=== PATIENT | female | born 1950 | race Asian ===

== ENCOUNTER 2024-06-14 19:21 | Inpatient (IN) | payer MEDICARE, OTHER ==
[~2024-06-14] VITALS: Ht 157.5 cm; Wt 58.5 kg
[~2024-06-14 19:21] MED LIST: ALEN70TA80 PO; ASPI-1444 PO; ATOR-2 PO; BRIM5DRO23 OU; BUME1TAB6 PO; CARB50DR OU; CITA-144 PO; DORZ10DR32 OU; EMPA10TA3 PO; FLUT12AE7 IH; LORA10TA7 PO; METO-416 PO; POTA-92 PO; SPIR-37 PO; WARF2.5T85 PO; XALA2.5OS OU
[2024-06-14] MEDS ORDERED: 0.9% SODIUM CHLORIDE 5 ML NEB SOLUTION NEB ONE (19:57)
[2024-06-14 20:19] VITALS: PULSE 99; RESP 38; O2SAT 96
[2024-06-14] MEDS ORDERED: AMIO200T68 PO (20:19)
[2024-06-14] MEDS ORDERED: ASCO500 PO (20:19)
[2024-06-14] MEDS ORDERED: METO25 PO (20:19)
[2024-06-14] MEDS ORDERED: ZINC50CA3 PO (20:19)
[2024-06-14] MEDS: BUMETANIDE 0.25 MG/ML 4 ML VIAL IVP ONE (20:19)
[2024-06-14] MEDS ORDERED: PANT-31 PO (20:19)
[2024-06-14] MEDS ORDERED: MULT-1203 PO (20:19)
[2024-06-14] MEDS ORDERED: WARF1TAB9 PO (20:19)
[2024-06-14] MEDS ORDERED: MELA5TAB40 PO (20:19)
[2024-06-14] MEDS ORDERED: MIDO5TAB29 PO (20:19)
[2024-06-14 20:45] VITALS: PULSE 92; RESP 42; O2SAT 91
[2024-06-14] MEDS: ALBUTEROL SULFATE 2.5 MG/0.5 ML 5 ML NEB SOLUTION NEB ONE (20:57)
[2024-06-14] MEDS: IPRATROPIUM BROMIDE 0.5 MG/2.5 ML NEB SOLUTION NEB ONE (20:57)
[2024-06-14 20:58] VITALS: PULSE 92; RESP 38; O2SAT 96
[2024-06-14 21:16] LABS: BILIRUBIN,DIRECT 0.2 mg/dL (0.00-0.20); BILIRUBIN,TOTAL 0.7 mg/dL (0.1-1.0); CALCIUM, TOTAL 9.1 mg/dL (8.8-10.5); CREATININE 1.15 mg/dL (0.60-1.30); POTASSIUM 4.5 mmol/L (3.5-5.1)
[2024-06-14 21:17] LABS: TROPONIN I-HIGH SENSITIVITY 30 ng/L (<51)
[2024-06-14 21:34] LABS: COVID AG,FIA SOURCE NASAL SWAB
[2024-06-14 21:36] LABS: BASOPHILS % (AUTO) 0.1 % (0.0-2.0); EOSINOPHILS % (AUTO) 0.3 % (1.0-6.0); HEMATOCRIT 28.3 % (36-46); HEMOGLOBIN 8.4 g/dL (12.0-16.0); LYMPHOCYTES # (AUTO) 0.3 K/uL (1.0-4.8); LYMPHOCYTES % (AUTO) 2.4 % (22.0-44.0); MEAN CORPUSCULAR HEMOGLOBIN 29.2 pg (26.0-34.0); MEAN CORPUSCULAR HGB CONC 29.8 G/dL (31.0-37.0); MEAN CORPUSCULAR VOLUME 98 fL (80-100); MONOCYTES # (AUTO) 1.3 K/uL (0.1-1.0); NEUTROPHILS # (AUTO) 12.6 K/uL (1.8-7.7); NEUTROPHILS % (AUTO) 88.2 % (40.0-70.0); PLATELET COUNT (AUTO) 263 K/uL (150-450); RED BLOOD CELL COUNT(AUTO) 2.89 MIL/uL (4.00-5.20); WHITE BLOOD COUNT (AUTO) 14.3 K/uL (4.5-11.0)
[2024-06-14 21:40] LABS: SOURCE, BLOOD GAS ARTERIAL
[2024-06-14 21:42] LABS: APPEARANCE,URINE CLEAR (CLEAR); BILIRUBIN,URINE NEGATIVE (NEGATIVE); COLOR,URINE LIGHT YELLOW (YELLOW); GLUCOSE, URINE (UA) NEGATIVE (NEGATIVE); KETONES,URINE NEGATIVE (NEGATIVE); LEUKOCYTE ESTERASE ,URINE NEGATIVE (NEGATIVE); NITRATE,URINE NEGATIVE (NEGATIVE); OCCULT BLOOD,URINE NEGATIVE (NEGATIVE); PH,URINE 5.5 (5.0-8.0); PROTEIN,URINE TRACE mg/dL (NEGATIVE); SPECIFIC GRAVITIY, URINE 1.009 (1.003-1.030); UROBILINOGEN,URINE <=1.0 mg/dL (<=1.0)
[2024-06-14 21:51] VITALS: PULSE 83; RESP 24; O2SAT 97
[2024-06-14 21:55] LABS: SARS-COV2 (COVID) ANTIGEN,FIA Negative (Negative)
[2024-06-14 21:59] LABS: TEMPERATURE, FAHRENHEIT, BG 98.6 FAHREN (96.0-98.6)
[2024-06-14 22:01] LABS: ABG BASE EXCESS 16.1 mmol/L (-2.0-3.0); ABG CARBOXYHEMOGLOBIN 1.1 % (0.5-1.5); ABG HCO3 37.6 mmol/L (21.0-28.0); ABG METHEMOGLOBIN 0.8 % (0.0-1.5); ABG OXYGEN CONTENT 11.7 mL/dL (15.0-23.0); ABG OXYGEN SATURATION 89.9 % (94.0-98.0); ABG OXYHEMOGLOBIN 88.2 % (94.0-98.0); ABG PCO2 65 mmHg (32.0-45.0); ABG PH 7.417 (7.350-7.450); ABG TOTAL HEMOGLOBIN 9.4 G/dL (12.0-16.0); PO2, ARTERIAL BG 58.7 mmHg (83.0-108.0)
[2024-06-14 22:02] LABS: ALLEN TEST, BLOOD GAS POS; O2 DEVICE,BLOOD GAS BIPAP (ROOM AIR); SITE, BLOOD GAS LFT RADIAL
[2024-06-14 22:03] LABS: SPONTANEOUS VT, BG 382 ml
[2024-06-14 22:09] VITALS: PULSE 88; RESP 29; O2SAT 96
[2024-06-14] MEDS: AZITHROMYCIN 500 MG/NS 250 ML IV ONE (22:54)
[2024-06-14] MEDS: CefTRIAXone 1 GM/DEXTROSE 50 ML IV ONE (22:54)
[2024-06-14 23:12] LABS: INR 1.8 (0.9-1.1); PROTHROMBIN TIME 18.5 SEC (9.4-11.6)
[2024-06-14 23:48] LABS: ABG BASE EXCESS 21.3 mmol/L (-2.0-3.0); ABG CARBOXYHEMOGLOBIN 0.4 % (0.5-1.5); ABG HCO3 42.6 mmol/L (21.0-28.0); ABG OXYGEN CONTENT 12.5 mL/dL (15.0-23.0); ABG OXYGEN SATURATION 98.3 % (94.0-98.0); ABG OXYHEMOGLOBIN 96.9 % (94.0-98.0); ABG PCO2 75 mmHg (32.0-45.0); ABG PH 7.407 (7.350-7.450); ALLEN TEST, BLOOD GAS Positive; PO2, ARTERIAL BG 107.4 mmHg (83.0-108.0); SITE, BLOOD GAS LFT RADIAL; SOURCE, BLOOD GAS ARTERIAL; TEMPERATURE, FAHRENHEIT, BG 97.3 FAHREN (96.0-98.6)
[2024-06-14 23:49] LABS: ABG A-A DIFF O2 239.6 mmHg (10-20.0); INSPIRATORY TIME, BG 0.9 SEC; O2 DEVICE,BLOOD GAS BIPAP (ROOM AIR)
[2024-06-15] VITALS (15 sets, daily range): BP systolic 90–150; BP diastolic 56–90; PULSE 64–100; RESP 14–39; TEMP 98.4–98.9; O2SAT 90–100
[2024-06-15] MEDS: SODIUM CHLORIDE 0.9% 250 ML IV ONE (00:10)
[2024-06-15] MEDS ORDERED: BISACODYL 10 MG RECTAL RECTAL SUPPOSITORY PR PRN (00:45)
[2024-06-15] MEDS ORDERED: ZOLPIDEM TARTRATE 5 MG TABLET PO PRN (00:45)
[2024-06-15] MEDS ORDERED: ONDANSETRON HCL 4 MG/2 ML VIAL IVP PRN (00:45)
[2024-06-15] MEDS ORDERED: MAGNESIUM HYDROXIDE SUSPENSION 30 ML UDCUP PO PRN (00:45)
[2024-06-15] MEDS: VANCOMYCIN 1GM/WATER(PEG/NADA) 200 ML IV ONE (01:00)
[2024-06-15] MEDS: *CLINICAL-WARFARIN SODIUM DOSING CLINICAL ONE (01:53)
[2024-06-15] MEDS: WARFARIN SODIUM 1 MG TABLET PO ONE (02:00)
[2024-06-15] MEDS ORDERED: WARFARIN SODIUM-INR 2.5-3.5-RX DOSING PER PROTOCOL PO PRN (02:00)
[2024-06-15] MEDS: VANCOMYCIN 1GM/WATER(PEG/NADA) 200 ML IV SCH (03:39)
[2024-06-15] MEDS: DOXYCYCLINE HYCLATE 100 MG in DEXTROSE 5%-WATER 100 ML IV SCH (05:20)
[2024-06-15 06:15] LABS: CREATININE 0.96 mg/dL (0.60-1.30); POTASSIUM 4.2 mmol/L (3.5-5.1)
[2024-06-15 06:17] LABS: INR 1.6 (0.9-1.1); PROTHROMBIN TIME 15.9 SEC (9.4-11.6)
[2024-06-15] MEDS: PIPERACILLIN/TAZO 3.375 GM/D5W 50 ML IV SCH (07:35)
[2024-06-15] MEDS: MULTIVITAMINS, THERAPEUTIC TABLET PO SCH (09:00)
[2024-06-15] MEDS: ASPIRIN 81 MG DR TABLET PO SCH (09:00)
[2024-06-15] MEDS: MIDODRINE HCL 5 MG TABLET PO SCH (09:00)
[2024-06-15] MEDS: ATORVASTATIN CALCIUM 40 MG TABLET PO SCH (09:00)
[2024-06-15] MEDS: DOCUSATE SODIUM 100 MG CAPSULE PO SCH (09:00)
[2024-06-15] MEDS: PANTOPRAZOLE SODIUM 40 MG/VIAL IVP SCH (09:42)
[2024-06-15] MEDS: ETHYL ALCOHOL 62% ANTISEPTIC NASAL SANITIZER 0.6 ML AMPUL NASAL SCH (09:43)
[2024-06-15] MEDS: BRIMONIDINE TARTRATE 0.15% 5 ML OPHTHALMIC SOLUTION OU SCH (09:44)
[2024-06-15] MEDS: DORZOLAMIDE/TIMOLOL 2-0.5% [22.3-6.8MG/ML] 10 ML OPHTHALMIC SOLUTION OU SCH (09:45)
[2024-06-15] MEDS ORDERED: SODIUM CHLORIDE 0.9% 250 ML IV ONE (16:34)
[2024-06-15] MEDS: ALBUTEROL SULFATE 2.5 MG/0.5 ML NEB SOLUTION NEB PRN (20:38)
[2024-06-15] MEDS: IPRATROPIUM BROMIDE 0.5 MG/2.5 ML NEB SOLUTION NEB PRN (20:38)
[2024-06-15] MEDS: VANCOMYCIN 500 MG/WATER(PEG) 100 ML IV SCH (21:43)
[2024-06-15] MEDS: LATANOPROST 0.005% 2.5 ML OPHTHALMIC SOLUTION OU SCH (21:44)
[2024-06-16] VITALS (8 sets, daily range): BP systolic 105–127; BP diastolic 59–85; PULSE 71–87; RESP 13–33; TEMP 97.4–98.9; O2SAT 90–99
[2024-06-16 06:19] LABS: HEMATOCRIT 27.1 % (36-46); HEMOGLOBIN 8.5 g/dL (12.0-16.0); MEAN CORPUSCULAR HEMOGLOBIN 30.6 pg (26.0-34.0); MEAN CORPUSCULAR HGB CONC 31.4 G/dL (31.0-37.0); MEAN CORPUSCULAR VOLUME 98 fL (80-100); PLATELET COUNT (AUTO) 231 K/uL (150-450); RED BLOOD CELL COUNT(AUTO) 2.77 MIL/uL (4.00-5.20); RED CELL DISTRIBUTION WIDTH 21.3 % (11.5-14.5); WHITE BLOOD COUNT (AUTO) 8.2 K/uL (4.5-11.0)
[2024-06-16 06:29] LABS: INR 1.6 (0.9-1.1); PROTHROMBIN TIME 16.8 SEC (9.4-11.6)
[2024-06-16 06:30] LABS: CALCIUM, TOTAL 9.8 mg/dL (8.8-10.5); CREATININE 0.93 mg/dL (0.60-1.30); POTASSIUM 3.4 mmol/L (3.5-5.1)
[2024-06-16 07:04] LABS: BAND NEUTROPHILS % (MANUAL) 3 % (0-5); LYMPHOCYTES % (MANUAL) 7 % (22-44); MONOCYTES % (MANUAL) 8 % (2-9); SEGMENTED NEUTROPHILS % 82 % (40-70); TOTAL CELLS COUNTED 100
[2024-06-16 07:05] LABS: RBC MORPHOLOGY COMMENT NORMAL RBC MORPH
[2024-06-16] MEDS: BUMETANIDE 0.25 MG/ML 4 ML VIAL IVP SCH (08:38)
[2024-06-16] MEDS: WARFARIN SODIUM 2 MG TABLET PO ONE (17:09)
[2024-06-17] VITALS (8 sets, daily range): BP systolic 103–143; BP diastolic 48–80; PULSE 62–100; RESP 21–30; TEMP 97.5–98.7; O2SAT 91–100
[2024-06-17 06:35] LABS: BASOPHILS % (AUTO) 0.4 % (0.0-2.0); EOSINOPHILS % (AUTO) 2.1 % (1.0-6.0); HEMOGLOBIN 8.6 g/dL (12.0-16.0); LYMPHOCYTES # (AUTO) 0.4 K/uL (1.0-4.8); LYMPHOCYTES % (AUTO) 4.7 % (22.0-44.0); MEAN CORPUSCULAR HEMOGLOBIN 29.9 pg (26.0-34.0); MEAN CORPUSCULAR HGB CONC 30.8 G/dL (31.0-37.0); MEAN CORPUSCULAR VOLUME 97 fL (80-100); MONOCYTES # (AUTO) 0.7 K/uL (0.1-1.0); MONOCYTES % (AUTO) 9.6 % (2.0-9.0); NEUTROPHILS # (AUTO) 6.5 K/uL (1.8-7.7); NEUTROPHILS % (AUTO) 83.2 % (40.0-70.0); PLATELET COUNT (AUTO) 241 K/uL (150-450); RED BLOOD CELL COUNT(AUTO) 2.88 MIL/uL (4.00-5.20); RED CELL DISTRIBUTION WIDTH 21.7 % (11.5-14.5); WHITE BLOOD COUNT (AUTO) 7.8 K/uL (4.5-11.0)
[2024-06-17 06:43] LABS: INR 2.7 (0.9-1.1); PROTHROMBIN TIME 26.1 SEC (9.4-11.6)
[2024-06-17 07:16] LABS: CALCIUM, TOTAL 9.2 mg/dL (8.8-10.5); POTASSIUM 3.1 mmol/L (3.5-5.1)
[2024-06-17 07:17] LABS: VANCOMYCIN,RANDOM 24.8 mcg/mL (25.0-50.0)
[2024-06-17] MEDS: HYDROCODONE/ACETAMINOPHEN 5-325 MG TABLET PO PRN (08:05)
[2024-06-17] MEDS: MORPHINE SULFATE 2 MG/ML SYRINGE IVP PRN (09:09)
[2024-06-17] MEDS ORDERED: SODIUM CHLORIDE 0.9% 500 ML IV ONE (11:37)
[2024-06-17] MEDS ORDERED: ATOR40TA28 PO (15:57)
[2024-06-17] MEDS: POTASSIUM CHLORIDE 20 MEQ ER TABLET PO PRN (15:59)
[2024-06-17] MEDS: WARFARIN SODIUM 1 MG TABLET PO ONE (16:00)
[2024-06-18] VITALS (8 sets, daily range): BP systolic 107–164; BP diastolic 48–82; PULSE 54–76; RESP 12–32; TEMP 95.2–97.6; O2SAT 92–95
[2024-06-18 07:14] LABS: BASOPHILS % (AUTO) 0.7 % (0.0-2.0); EOSINOPHILS % (AUTO) 3.4 % (1.0-6.0); HEMOGLOBIN 8.5 g/dL (12.0-16.0); LYMPHOCYTES # (AUTO) 0.4 K/uL (1.0-4.8); MEAN CORPUSCULAR HEMOGLOBIN 30.6 pg (26.0-34.0); MEAN CORPUSCULAR HGB CONC 31.5 G/dL (31.0-37.0); MEAN CORPUSCULAR VOLUME 97 fL (80-100); MONOCYTES # (AUTO) 0.6 K/uL (0.1-1.0); MONOCYTES % (AUTO) 9.3 % (2.0-9.0); NEUTROPHILS # (AUTO) 5.3 K/uL (1.8-7.7); NEUTROPHILS % (AUTO) 80.6 % (40.0-70.0); PLATELET COUNT (AUTO) 253 K/uL (150-450); RED BLOOD CELL COUNT(AUTO) 2.79 MIL/uL (4.00-5.20); RED CELL DISTRIBUTION WIDTH 21.6 % (11.5-14.5); WHITE BLOOD COUNT (AUTO) 6.5 K/uL (4.5-11.0)
[2024-06-18 07:46] LABS: INR 3.9 (0.9-1.1); PROTHROMBIN TIME 37.6 SEC (9.4-11.6)
[2024-06-18 07:47] LABS: ALANINE AMINOTRANSFERASE 33 U/L (12-78); ALBUMIN 2.5 g/dL (3.4-5.0); ALKALINE PHOSPHATASE 170 U/L (46-116); ANION GAP 5 mmol/L (8-16); ASPARTATE AMINOTRANSFERASE 42 U/L (15-37); BILIRUBIN,TOTAL 0.7 mg/dL (0.1-1.0); CALCIUM, TOTAL 9.2 mg/dL (8.8-10.5); CARBON DIOXIDE 37 mmol/L (22-29); CHLORIDE 96 mmol/L (98-107); CREATININE 0.91 mg/dL (0.60-1.30); GLOMERULAR FILTR. RATE CALC > 60 mL/min (>60); GLUCOSE,RANDOM 129 mg/dL (70-110); POTASSIUM 3.2 mmol/L (3.5-5.1); SODIUM SERUM 138 mmol/L (136-145); TOTAL PROTEIN, SERUM 6.7 g/dL (6.4-8.2); UREA NITROGEN, BLOOD 25 mg/dL (7-18)
[2024-06-18] MEDS: VANCOMYCIN 750 MG/WATER(PEG) 150 ML IV SCH (08:50)
[2024-06-18] MEDS: ACETAMINOPHEN 325 MG TABLET PO PRN (09:56)
[2024-06-19] VITALS (10 sets, daily range): BP systolic 124–162; BP diastolic 57–88; PULSE 73–82; RESP 16–36; TEMP 96.2–97.6; O2SAT 88–99
[2024-06-19 06:25] LABS: CALCIUM, TOTAL 8.9 mg/dL (8.8-10.5); CREATININE 1.09 mg/dL (0.60-1.30); POTASSIUM 3.7 mmol/L (3.5-5.1)
[2024-06-19 06:28] LABS: PROTHROMBIN TIME 39.2 SEC (9.4-11.6)
[2024-06-19 06:38] LABS: INR 4.1 (0.9-1.1)
[2024-06-19 19:48] LABS: ABG CARBOXYHEMOGLOBIN 1.2 % (0.5-1.5); ABG HCO3 34.9 mmol/L (21.0-28.0); ABG METHEMOGLOBIN 0.1 % (0.0-1.5); ABG OXYGEN CONTENT 11.9 mL/dL (15.0-23.0); ABG OXYGEN SATURATION 96.9 % (94.0-98.0); ABG OXYHEMOGLOBIN 95.6 % (94.0-98.0); ABG PCO2 69 mmHg (32.0-45.0); ABG PH 7.362 (7.350-7.450); ABG TOTAL HEMOGLOBIN 8.7 G/dL (12.0-16.0); PO2, ARTERIAL BG 98.2 mmHg (83.0-108.0); SOURCE, BLOOD GAS ARTERIAL; TEMPERATURE, FAHRENHEIT, BG 97.6 FAHREN (96.0-98.6)
[2024-06-19 19:52] LABS: ALLEN TEST, BLOOD GAS Positive; SITE, BLOOD GAS RT RADIAL
[2024-06-19 19:53] LABS: O2 DEVICE,BLOOD GAS BIPAP (ROOM AIR)
[2024-06-19 19:54] LABS: SPONTANEOUS VT, BG 306 ml
[2024-06-19 19:55] LABS: INSPIRATORY TIME, BG 0.8 SEC
[2024-06-19] MEDS: BUMETANIDE 0.25 MG/ML 4 ML VIAL IVP SCH (20:21)
[2024-06-19] MEDS: PHYTONADIONE 5 MG in SODIUM CHLORIDE 0.9% 50 ML IV ONE (20:28)
[2024-06-20] VITALS (29 sets, daily range): BP systolic 92–152; BP diastolic 50–79; PULSE 64–88; RESP 12–42; TEMP 96.8–97.8; O2SAT 91–99
[2024-06-20 06:12] LABS: INR 1.3 (0.9-1.1)
[2024-06-20 06:19] LABS: CALCIUM, TOTAL 9.1 mg/dL (8.8-10.5); CREATININE 1.03 mg/dL (0.60-1.30); POTASSIUM 3.5 mmol/L (3.5-5.1); VANCOMYCIN,RANDOM 19.3 mcg/mL (25.0-50.0)
[2024-06-20] MEDS ORDERED: HEPARIN SODIUM,PORCINE 5,000 UNITS/ML VIAL IVP PRN (11:15)
[2024-06-20 11:53] LABS: BASOPHILS % (AUTO) 0.3 % (0.0-2.0); EOSINOPHILS % (AUTO) 2.5 % (1.0-6.0); HEMATOCRIT 22.9 % (36-46); LYMPHOCYTES # (AUTO) 0.3 K/uL (1.0-4.8); LYMPHOCYTES % (AUTO) 5.3 % (22.0-44.0); MEAN CORPUSCULAR HEMOGLOBIN 29.8 pg (26.0-34.0); MEAN CORPUSCULAR HGB CONC 30.5 G/dL (31.0-37.0); MEAN CORPUSCULAR VOLUME 98 fL (80-100); MONOCYTES # (AUTO) 0.6 K/uL (0.1-1.0); NEUTROPHILS # (AUTO) 5.3 K/uL (1.8-7.7); NEUTROPHILS % (AUTO) 81.9 % (40.0-70.0); PLATELET COUNT (AUTO) 265 K/uL (150-450); RED BLOOD CELL COUNT(AUTO) 2.34 MIL/uL (4.00-5.20); RED CELL DISTRIBUTION WIDTH 21.2 % (11.5-14.5); WHITE BLOOD COUNT (AUTO) 6.5 K/uL (4.5-11.0)
[2024-06-20 11:56] LABS: SOURCE, BLOOD GAS ARTERIAL; TEMPERATURE, FAHRENHEIT, BG 97.2 FAHREN (96.0-98.6)
[2024-06-20] MEDS: DEXMEDETOMIDINE HCL 400 MCG in SODIUM CHLORIDE 0.9% 96 ML IV PRN (12:07)
[2024-06-20 12:17] LABS: INR 1.2 (0.9-1.1); PROTHROMBIN TIME 12.3 SEC (9.4-11.6)
[2024-06-20] MEDS ORDERED: LIDOCAINE/PF 1% 30 ML VIAL ONE (12:28)
[2024-06-20] MEDS ORDERED: SODIUM CHLORIDE 0.9% 500 ML IV ONE (13:51)
[2024-06-20 14:35] LABS: ABG CARBOXYHEMOGLOBIN 0.9 % (0.5-1.5); ABG HCO3 38.2 mmol/L (21.0-28.0); ABG METHEMOGLOBIN 1.2 % (0.0-1.5); ABG OXYGEN CONTENT 9.5 mL/dL (15.0-23.0); ABG OXYGEN SATURATION 98.4 % (94.0-98.0); ABG OXYHEMOGLOBIN 96.3 % (94.0-98.0); ABG PCO2 66 mmHg (32.0-45.0); PO2, ARTERIAL BG 109.6 mmHg (83.0-108.0)
[2024-06-20 14:36] LABS: ABG A-A DIFF O2 393.7 mmHg (10-20.0); ABG TOTAL HEMOGLOBIN 6.8 G/dL (12.0-16.0); ALLEN TEST, BLOOD GAS Positive; SITE, BLOOD GAS LFT RADIAL
[2024-06-20 14:37] LABS: O2 DEVICE,BLOOD GAS HI FL CANNULA (ROOM AIR)
[2024-06-20 14:41] LABS: SPECIMENTYPE,BODY FLUID THORACENTESIS
[2024-06-20 15:33] LABS: APPEARANCE,SPUN,BODY FLUID CLEAR (CLEAR); APPEARANCE,UNSPUN,BODY FLUID BLOODY (CLEAR); COLOR,BODY FLUID RED (LT YELLOW); TOTAL VOLUME,BODY FLUID 800 mL
[2024-06-20 15:34] LABS: BASOPHILS,BODY FLUID 0 %; EOSINOPHILS,BF (ANAL) 0 %; LYMPHOCYTES,BODY FLUID 83 %; MONOCYTES,BODY FLUID 9 %; NEUTROPHILS,BODY FLUID 8 %; PH, BODY FLUID 7; WBC, BODY FLUID 80 /cu. mm.
[2024-06-20 20:31] LABS: HEMATOCRIT 26.6 % (36-46); HEMOGLOBIN 8.1 g/dL (12.0-16.0)
[2024-06-20] MEDS: NOREPINEPHRINE 8 MG/0.9 % NACL 250 ML IV PRN (23:41)
[2024-06-20 23:42] LABS: ABG BASE EXCESS 13.9 mmol/L (-2.0-3.0); ABG CARBOXYHEMOGLOBIN 1.2 % (0.5-1.5); ABG METHEMOGLOBIN 0.3 % (0.0-1.5); ABG OXYGEN CONTENT 11.4 mL/dL (15.0-23.0); ABG OXYGEN SATURATION 96.4 % (94.0-98.0); ABG PCO2 62 mmHg (32.0-45.0); ABG PH 7.414 (7.350-7.450); ABG TOTAL HEMOGLOBIN 8.4 G/dL (12.0-16.0); SOURCE, BLOOD GAS ARTERIAL; TEMPERATURE, FAHRENHEIT, BG 98.6 FAHREN (96.0-98.6)
[2024-06-20 23:43] LABS: ALLEN TEST, BLOOD GAS Positive; O2 DEVICE,BLOOD GAS BIPAP (ROOM AIR); SITE, BLOOD GAS LFT RADIAL
[2024-06-21] VITALS (10 sets, daily range): BP systolic 73–123; BP diastolic 41–70; PULSE 48–80; RESP 16–34; TEMP 96.5–97.7; O2SAT 96–100
[2024-06-21 06:22] LABS: HEMATOCRIT 25.8 % (36-46); MEAN CORPUSCULAR HEMOGLOBIN 28.2 pg (26.0-34.0); MEAN CORPUSCULAR HGB CONC 30.9 G/dL (31.0-37.0); MEAN CORPUSCULAR VOLUME 91 fL (80-100); PLATELET COUNT (AUTO) 179 K/uL (150-450); RED BLOOD CELL COUNT(AUTO) 2.82 MIL/uL (4.00-5.20); RED CELL DISTRIBUTION WIDTH 23.8 % (11.5-14.5); WHITE BLOOD COUNT (AUTO) 17.5 K/uL (4.5-11.0)
[2024-06-21 06:33] LABS: INR 1.1 (0.9-1.1); PROTHROMBIN TIME 11.6 SEC (9.4-11.6)
[2024-06-21 08:08] LABS: RBC MORPHOLOGY COMMENT ABNORMAL RBC MORPH
[2024-06-21 08:19] LABS: BAND NEUTROPHILS % (MANUAL) 3 % (0-5); BASOPHILS % (MANUAL) 1 % (0-2); LYMPHOCYTES % (MANUAL) 7 % (22-44); MONOCYTES % (MANUAL) 7 % (2-9); SEGMENTED NEUTROPHILS % 82 % (40-70); TOTAL CELLS COUNTED 100
[2024-06-21 08:20] LABS: CALCIUM, TOTAL 8.4 mg/dL (8.8-10.5); CREATININE 1.04 mg/dL (0.60-1.30); POTASSIUM 3.7 mmol/L (3.5-5.1)
[2024-06-21] MEDS ORDERED: SODIUM CHLORIDE 0.9% 250 ML IV ONE (09:01)
[2024-06-21] MEDS: HEPARIN SODIUM 25000 UNITS/D5W 250 ML IV PRN (11:00)
[2024-06-21 14:07] LABS: TOTAL PROTEIN,BODY FLUID,REF 1.8 g/dL
[2024-06-21 15:16] LABS: HEMOGLOBIN 8.4 g/dL (12.0-16.0)
[2024-06-21 20:54] LABS: HEMOGLOBIN 8.4 g/dL (12.0-16.0)
[2024-06-22] VITALS (13 sets, daily range): BP systolic 95–142; BP diastolic 40–67; PULSE 49–74; RESP 16–27; TEMP 96.4–97.8; O2SAT 89–100
[2024-06-22 06:45] LABS: HEMATOCRIT 27.2 % (36-46); HEMOGLOBIN 8.6 g/dL (12.0-16.0); MEAN CORPUSCULAR HEMOGLOBIN 28.9 pg (26.0-34.0); MEAN CORPUSCULAR HGB CONC 31.8 G/dL (31.0-37.0); MEAN CORPUSCULAR VOLUME 91 fL (80-100); PLATELET COUNT (AUTO) 199 K/uL (150-450); RED BLOOD CELL COUNT(AUTO) 2.98 MIL/uL (4.00-5.20); RED CELL DISTRIBUTION WIDTH 22.2 % (11.5-14.5); WHITE BLOOD COUNT (AUTO) 13.9 K/uL (4.5-11.0)
[2024-06-22 07:41] LABS: BAND NEUTROPHILS % (MANUAL) 2 % (0-5); EOSINOPHILS % (MANUAL) 2 % (1-6); LYMPHOCYTES % (MANUAL) 6 % (22-44); MONOCYTES % (MANUAL) 10 % (2-9); SEGMENTED NEUTROPHILS % 80 % (40-70); TOTAL CELLS COUNTED 100
[2024-06-22 07:42] LABS: RBC MORPHOLOGY COMMENT ABNORMAL RBC MORPH
[2024-06-22 09:26] LABS: CALCIUM, TOTAL 8.6 mg/dL (8.8-10.5); CREATININE 1.06 mg/dL (0.60-1.30); POTASSIUM 3.3 mmol/L (3.5-5.1)
[2024-06-23] VITALS (14 sets, daily range): BP systolic 135–171; BP diastolic 67–99; PULSE 67–102; RESP 16–40; TEMP 96.6–98; O2SAT 78–100
[2024-06-23 07:15] LABS: ANION GAP 6 mmol/L (8-16); CALCIUM, TOTAL 8.8 mg/dL (8.8-10.5); CARBON DIOXIDE 40 mmol/L (22-29); CHLORIDE 93 mmol/L (98-107); CREATININE 0.85 mg/dL (0.60-1.30); GLOMERULAR FILTR. RATE CALC > 60 mL/min (>60); GLUCOSE,RANDOM 148 mg/dL (70-110); POTASSIUM 3.4 mmol/L (3.5-5.1); SODIUM SERUM 139 mmol/L (136-145); UREA NITROGEN, BLOOD 18 mg/dL (7-18); VANCOMYCIN,RANDOM 18.8 mcg/mL (25.0-50.0)
[2024-06-23 07:20] LABS: BASOPHILS % (AUTO) 0.2 % (0.0-2.0); EOSINOPHILS % (AUTO) 0.8 % (1.0-6.0); HEMATOCRIT 25.8 % (36-46); HEMOGLOBIN 8.2 g/dL (12.0-16.0); LYMPHOCYTES # (AUTO) 0.6 K/uL (1.0-4.8); LYMPHOCYTES % (AUTO) 4.5 % (22.0-44.0); MEAN CORPUSCULAR HEMOGLOBIN 29.2 pg (26.0-34.0); MEAN CORPUSCULAR VOLUME 92 fL (80-100); MONOCYTES % (AUTO) 7.3 % (2.0-9.0); NEUTROPHILS # (AUTO) 12.4 K/uL (1.8-7.7); PLATELET COUNT (AUTO) 229 K/uL (150-450); RED BLOOD CELL COUNT(AUTO) 2.82 MIL/uL (4.00-5.20); RED CELL DISTRIBUTION WIDTH 22.4 % (11.5-14.5); WHITE BLOOD COUNT (AUTO) 14.2 K/uL (4.5-11.0)
[2024-06-23 07:22] LABS: NEUTROPHILS % (AUTO) 87.2 % (40.0-70.0)
[2024-06-23 07:24] LABS: RBC MORPHOLOGY COMMENT ABNORMAL RBC MORPH
[2024-06-23 08:52] LABS: ABG CARBOXYHEMOGLOBIN 0.6 % (0.5-1.5); ABG HCO3 33.9 mmol/L (21.0-28.0); ABG OXYGEN CONTENT 9.2 mL/dL (15.0-23.0); ABG OXYHEMOGLOBIN 69.2 % (94.0-98.0); ABG PCO2 91 mmHg (32.0-45.0); ABG PH 7.261 (7.350-7.450); ABG TOTAL HEMOGLOBIN 9.4 G/dL (12.0-16.0); SOURCE, BLOOD GAS ARTERIAL
[2024-06-23 08:53] LABS: PO2, ARTERIAL BG 42.4 mmHg (83.0-108.0)
[2024-06-23 08:54] LABS: ABG OXYGEN SATURATION 70.3 % (94.0-98.0); O2 DEVICE,BLOOD GAS CANNULA (ROOM AIR); SITE, BLOOD GAS RT BRACHIAL
[2024-06-23] MEDS: ALTEPLASE 2 MG VIAL/STERILE WATER IVCATH ONE (14:48)
[2024-06-24] VITALS (14 sets, daily range): BP systolic 91–155; BP diastolic 53–68; PULSE 55–92; RESP 16–40; TEMP 96–98.1; O2SAT 50–100
[2024-06-24 06:09] LABS: BASOPHILS % (AUTO) 0.1 % (0.0-2.0); EOSINOPHILS % (AUTO) 0.5 % (1.0-6.0); HEMATOCRIT 23.4 % (36-46); HEMOGLOBIN 7.3 g/dL (12.0-16.0); LYMPHOCYTES # (AUTO) 0.6 K/uL (1.0-4.8); LYMPHOCYTES % (AUTO) 5.8 % (22.0-44.0); MEAN CORPUSCULAR HEMOGLOBIN 29.2 pg (26.0-34.0); MEAN CORPUSCULAR HGB CONC 31.1 G/dL (31.0-37.0); MEAN CORPUSCULAR VOLUME 94 fL (80-100); MONOCYTES # (AUTO) 1.2 K/uL (0.1-1.0); MONOCYTES % (AUTO) 10.4 % (2.0-9.0); NEUTROPHILS # (AUTO) 9.2 K/uL (1.8-7.7); NEUTROPHILS % (AUTO) 83.2 % (40.0-70.0); PLATELET COUNT (AUTO) 207 K/uL (150-450); RED BLOOD CELL COUNT(AUTO) 2.49 MIL/uL (4.00-5.20); RED CELL DISTRIBUTION WIDTH 22.2 % (11.5-14.5); WHITE BLOOD COUNT (AUTO) 11.1 K/uL (4.5-11.0)
[2024-06-24 06:22] LABS: CALCIUM, TOTAL 8.9 mg/dL (8.8-10.5); CREATININE 1.05 mg/dL (0.60-1.30); POTASSIUM 4.1 mmol/L (3.5-5.1)
[2024-06-24 11:09] LABS: ABG BASE EXCESS 13.6 mmol/L (-2.0-3.0); ABG CARBOXYHEMOGLOBIN 0.8 % (0.5-1.5); ABG HCO3 35.2 mmol/L (21.0-28.0); ABG OXYGEN CONTENT 10.3 mL/dL (15.0-23.0); ABG OXYGEN SATURATION 87.6 % (94.0-98.0); ABG OXYHEMOGLOBIN 86.9 % (94.0-98.0); ABG PCO2 78 mmHg (32.0-45.0); ABG PH 7.323 (7.350-7.450); ABG TOTAL HEMOGLOBIN 8.4 G/dL (12.0-16.0); PO2, ARTERIAL BG 55.9 mmHg (83.0-108.0); SOURCE, BLOOD GAS ARTERIAL; TEMPERATURE, FAHRENHEIT, BG 97.7 FAHREN (96.0-98.6)
[2024-06-24 11:13] LABS: ABG A-A DIFF O2 110.9 mmHg (10-20.0); ALLEN TEST, BLOOD GAS Positive; O2 DEVICE,BLOOD GAS CANNULA (ROOM AIR); SITE, BLOOD GAS LFT RADIAL
[2024-06-24] MEDS: ALTEPLASE 2 MG VIAL/STERILE WATER IVCATH ONE (13:56)
[2024-06-25] VITALS (14 sets, daily range): BP systolic 89–120; BP diastolic 53–74; PULSE 66–84; RESP 14–30; TEMP 96.9–98.4; O2SAT 93–100
[2024-06-25 06:09] LABS: BASOPHILS % (AUTO) 0.5 % (0.0-2.0); EOSINOPHILS % (AUTO) 0.6 % (1.0-6.0); HEMOGLOBIN 7.5 g/dL (12.0-16.0); LYMPHOCYTES # (AUTO) 0.6 K/uL (1.0-4.8); LYMPHOCYTES % (AUTO) 4.8 % (22.0-44.0); MEAN CORPUSCULAR HEMOGLOBIN 29.2 pg (26.0-34.0); MEAN CORPUSCULAR HGB CONC 31.3 G/dL (31.0-37.0); MEAN CORPUSCULAR VOLUME 94 fL (80-100); MONOCYTES # (AUTO) 2.3 K/uL (0.1-1.0); MONOCYTES % (AUTO) 16.9 % (2.0-9.0); NEUTROPHILS # (AUTO) 10.3 K/uL (1.8-7.7); NEUTROPHILS % (AUTO) 77.2 % (40.0-70.0); PLATELET COUNT (AUTO) 177 K/uL (150-450); RED BLOOD CELL COUNT(AUTO) 2.56 MIL/uL (4.00-5.20); RED CELL DISTRIBUTION WIDTH 23.8 % (11.5-14.5); WHITE BLOOD COUNT (AUTO) 13.4 K/uL (4.5-11.0)
[2024-06-25 06:25] LABS: ALBUMIN 2.2 g/dL (3.4-5.0); BILIRUBIN,TOTAL 0.8 mg/dL (0.1-1.0); CALCIUM, TOTAL 9.1 mg/dL (8.8-10.5); CREATININE 1.05 mg/dL (0.60-1.30); POTASSIUM 3.8 mmol/L (3.5-5.1); TOTAL PROTEIN, SERUM 6.3 g/dL (6.4-8.2)
[2024-06-25] MEDS: HEPARIN SODIUM,PORCINE 5,000 UNITS/ML VIAL IVP PRN (07:36)
[2024-06-25] MEDS ORDERED: SODIUM CHLORIDE 0.9% 250 ML IV ONE (17:23)
[2024-06-26] VITALS (14 sets, daily range): BP systolic 95–144; BP diastolic 45–82; PULSE 62–91; RESP 16–36; TEMP 97.6–98.3; O2SAT 90–97
[2024-06-26 07:04] LABS: CALCIUM, TOTAL 8.8 mg/dL (8.8-10.5); CREATININE 1.03 mg/dL (0.60-1.30); POTASSIUM 3.6 mmol/L (3.5-5.1); VANCOMYCIN,RANDOM 23.5 mcg/mL (25.0-50.0)
[2024-06-26 08:54] LABS: BASOPHILS % (AUTO) 0.4 % (0.0-2.0); EOSINOPHILS % (AUTO) 0.6 % (1.0-6.0); HEMATOCRIT 24.6 % (36-46); HEMOGLOBIN 7.4 g/dL (12.0-16.0); LYMPHOCYTES # (AUTO) 0.5 K/uL (1.0-4.8); LYMPHOCYTES % (AUTO) 3.6 % (22.0-44.0); MEAN CORPUSCULAR HEMOGLOBIN 28.7 pg (26.0-34.0); MEAN CORPUSCULAR HGB CONC 30.3 G/dL (31.0-37.0); MEAN CORPUSCULAR VOLUME 95 fL (80-100); MONOCYTES % (AUTO) 6.5 % (2.0-9.0); NEUTROPHILS # (AUTO) 13.3 K/uL (1.8-7.7); PLATELET COUNT (AUTO) 193 K/uL (150-450); RED BLOOD CELL COUNT(AUTO) 2.59 MIL/uL (4.00-5.20); RED CELL DISTRIBUTION WIDTH 23.1 % (11.5-14.5)
[2024-06-26 09:04] LABS: NEUTROPHILS % (AUTO) 88.9 % (40.0-70.0)
[2024-06-26 09:05] LABS: RBC MORPHOLOGY COMMENT ABNORMAL RBC MORPH
[2024-06-26] MEDS: BUMETANIDE 0.25 MG/ML 4 ML VIAL IVP SCH (20:41)
[2024-06-27] VITALS (13 sets, daily range): BP systolic 104–145; BP diastolic 56–83; PULSE 66–115; RESP 19–40; TEMP 96–97.7; O2SAT 90–95
[2024-06-27 06:23] LABS: ANION GAP 5 mmol/L (8-16); CALCIUM, TOTAL 8.5 mg/dL (8.8-10.5); CHLORIDE 95 mmol/L (98-107); CREATININE 0.91 mg/dL (0.60-1.30); GLOMERULAR FILTR. RATE CALC > 60 mL/min (>60); GLUCOSE,RANDOM 189 mg/dL (70-110); SODIUM SERUM 143 mmol/L (136-145); UREA NITROGEN, BLOOD 19 mg/dL (7-18)
[2024-06-27 06:26] LABS: BASOPHILS % (AUTO) 0.1 % (0.0-2.0); EOSINOPHILS % (AUTO) 0.3 % (1.0-6.0); HEMATOCRIT 24.4 % (36-46); HEMOGLOBIN 7.6 g/dL (12.0-16.0); LYMPHOCYTES # (AUTO) 0.6 K/uL (1.0-4.8); LYMPHOCYTES % (AUTO) 4.4 % (22.0-44.0); MEAN CORPUSCULAR HGB CONC 31.2 G/dL (31.0-37.0); MEAN CORPUSCULAR VOLUME 93 fL (80-100); MONOCYTES # (AUTO) 0.8 K/uL (0.1-1.0); PLATELET COUNT (AUTO) 225 K/uL (150-450); RED BLOOD CELL COUNT(AUTO) 2.63 MIL/uL (4.00-5.20); RED CELL DISTRIBUTION WIDTH 23.8 % (11.5-14.5); WHITE BLOOD COUNT (AUTO) 13.5 K/uL (4.5-11.0)
[2024-06-27 06:27] LABS: NEUTROPHILS % (AUTO) 89.2 % (40.0-70.0)
[2024-06-27 06:38] LABS: CARBON DIOXIDE 43 mmol/L (22-29)
[2024-06-27] MEDS: VANCOMYCIN 500 MG/WATER(PEG) 100 ML IV SCH (08:02)
[2024-06-27] MEDS: AcetaZOLAMIDE SODIUM 500 MG VIAL IVP ONE (09:29)
[2024-06-27] MEDS: POTASSIUM CHL 10 MEQ/WATER 50 ML IV PRN (13:50)
[2024-06-28] VITALS (13 sets, daily range): BP systolic 109–142; BP diastolic 45–71; PULSE 71–97; RESP 17–35; TEMP 96.9–98.6; O2SAT 82–100
[2024-06-28 06:11] LABS: CALCIUM, TOTAL 8.9 mg/dL (8.8-10.5); CREATININE 1.16 mg/dL (0.60-1.30); POTASSIUM 4.5 mmol/L (3.5-5.1)
[2024-06-28] MEDS ORDERED: SODIUM CHLORIDE 0.9% 250 ML IV ONE ×2 (08:06→20:10)
[2024-06-28 08:38] LABS: BASOPHILS % (AUTO) 0.3 % (0.0-2.0); EOSINOPHILS % (AUTO) 0.4 % (1.0-6.0); HEMATOCRIT 24.1 % (36-46); HEMOGLOBIN 7.2 g/dL (12.0-16.0); LYMPHOCYTES # (AUTO) 0.6 K/uL (1.0-4.8); LYMPHOCYTES % (AUTO) 4.1 % (22.0-44.0); MEAN CORPUSCULAR HEMOGLOBIN 28.3 pg (26.0-34.0); MEAN CORPUSCULAR HGB CONC 29.7 G/dL (31.0-37.0); MEAN CORPUSCULAR VOLUME 96 fL (80-100); MONOCYTES # (AUTO) 1.1 K/uL (0.1-1.0); MONOCYTES % (AUTO) 7.1 % (2.0-9.0); NEUTROPHILS # (AUTO) 13.3 K/uL (1.8-7.7); PLATELET COUNT (AUTO) 239 K/uL (150-450); RED BLOOD CELL COUNT(AUTO) 2.52 MIL/uL (4.00-5.20); RED CELL DISTRIBUTION WIDTH 23.9 % (11.5-14.5); WHITE BLOOD COUNT (AUTO) 15.1 K/uL (4.5-11.0)
[2024-06-28 08:47] LABS: NEUTROPHILS % (AUTO) 88.1 % (40.0-70.0)
[2024-06-28 10:53] LABS: RBC MORPHOLOGY COMMENT ABNORMAL RBC MORPH
[2024-06-29] VITALS (14 sets, daily range): BP systolic 113–136; BP diastolic 57–93; PULSE 82–102; RESP 20–35; TEMP 97.4–98.7; O2SAT 73–98
[2024-06-29] MEDS ORDERED: SODIUM CHLORIDE 0.9% 250 ML IV ONE (01:53)
[2024-06-29 06:53] LABS: BASOPHILS % (AUTO) 0.1 % (0.0-2.0); EOSINOPHILS % (AUTO) 0.5 % (1.0-6.0); HEMATOCRIT 26.8 % (36-46); HEMOGLOBIN 8.1 g/dL (12.0-16.0); LYMPHOCYTES # (AUTO) 0.4 K/uL (1.0-4.8); LYMPHOCYTES % (AUTO) 2.6 % (22.0-44.0); MEAN CORPUSCULAR HGB CONC 30.3 G/dL (31.0-37.0); MEAN CORPUSCULAR VOLUME 96 fL (80-100); MONOCYTES # (AUTO) 1.3 K/uL (0.1-1.0); MONOCYTES % (AUTO) 8.5 % (2.0-9.0); NEUTROPHILS # (AUTO) 13.9 K/uL (1.8-7.7); PLATELET COUNT (AUTO) 268 K/uL (150-450); RED CELL DISTRIBUTION WIDTH 23.4 % (11.5-14.5); WHITE BLOOD COUNT (AUTO) 15.8 K/uL (4.5-11.0)
[2024-06-29 06:58] LABS: NEUTROPHILS % (AUTO) 88.3 % (40.0-70.0)
[2024-06-29 07:38] LABS: ALBUMIN 2.2 g/dL (3.4-5.0); BILIRUBIN,TOTAL 0.7 mg/dL (0.1-1.0); CALCIUM, TOTAL 9.1 mg/dL (8.8-10.5); CREATININE 1.44 mg/dL (0.60-1.30); POTASSIUM 4.3 mmol/L (3.5-5.1); TOTAL PROTEIN, SERUM 6.9 g/dL (6.4-8.2)
[2024-06-29] MEDS ORDERED: SODIUM CHLORIDE 0.9% 500 ML IV ONE (07:47)
[2024-06-29 08:39] LABS: RBC MORPHOLOGY COMMENT ABNORMAL RBC MORPH
[2024-06-29] MEDS: INSULIN LISPRO 100 UNITS/ML SQ PRN (17:05)
[2024-06-29 17:15] LABS: GLUCOMETER DEV NAME(LOC) ICU.S6; GLUCOSE,POINT OF CARE 232 MG/DL (70-110)
[2024-06-30] VITALS (20 sets, daily range): BP systolic 90–175; BP diastolic 50–102; PULSE 55–130; RESP 10–30; TEMP 95.6–98.6; O2SAT 52–100
[2024-06-30] MEDS ORDERED: SODIUM CHLORIDE 0.9% 500 ML IV ONE ×3 (00:10→18:10)
[2024-06-30 00:46] LABS: GLUCOMETER DEV NAME(LOC) ICUN.5; GLUCOSE,POINT OF CARE 156 MG/DL (70-110)
[2024-06-30 05:50] LABS: GLUCOMETER DEV NAME(LOC) ICUN.5; GLUCOSE,POINT OF CARE 131 MG/DL (70-110)
[2024-06-30] MEDS ORDERED: SODIUM CHLORIDE 0.9% 250 ML IV ONE (09:42)
[2024-06-30] MEDS ORDERED: NOREPINEPHRINE 8 MG/0.9 % NACL 250 ML IV PRN (10:15)
[2024-06-30 10:56] LABS: BASOPHILS % (AUTO) 0.2 % (0.0-2.0); EOSINOPHILS % (AUTO) 0.2 % (1.0-6.0); HEMATOCRIT 23.6 % (36-46); LYMPHOCYTES # (AUTO) 1.4 K/uL (1.0-4.8); LYMPHOCYTES % (AUTO) 7.6 % (22.0-44.0); MEAN CORPUSCULAR HEMOGLOBIN 28.3 pg (26.0-34.0); MEAN CORPUSCULAR HGB CONC 28.7 G/dL (31.0-37.0); MEAN CORPUSCULAR VOLUME 99 fL (80-100); MONOCYTES # (AUTO) 1.6 K/uL (0.1-1.0); MONOCYTES % (AUTO) 8.6 % (2.0-9.0); NEUTROPHILS # (AUTO) 15.6 K/uL (1.8-7.7); NEUTROPHILS % (AUTO) 83.4 % (40.0-70.0); PLATELET COUNT (AUTO) 230 K/uL (150-450); RED BLOOD CELL COUNT(AUTO) 2.39 MIL/uL (4.00-5.20); RED CELL DISTRIBUTION WIDTH 23.8 % (11.5-14.5); WHITE BLOOD COUNT (AUTO) 18.7 K/uL (4.5-11.0)
[2024-06-30 11:01] LABS: HEMOGLOBIN 6.8 g/dL (12.0-16.0)
[2024-06-30 11:02] LABS: RBC MORPHOLOGY COMMENT ABNORMAL RBC MORPH
[2024-06-30] MEDS: PROPOFOL 1000 MG/ISO-OSM 100 ML IV PRN (11:03)
[2024-06-30 11:29] LABS: CALCIUM, TOTAL 9.3 mg/dL (8.8-10.5); CREATININE 1.88 mg/dL (0.60-1.30); POTASSIUM 4.7 mmol/L (3.5-5.1); VANCOMYCIN,RANDOM 22.2 mcg/mL (25.0-50.0)
[2024-06-30 12:54] LABS: ABG A-A DIFF O2 449.5 mmHg (10-20.0); ABG BASE EXCESS -2.7 mmol/L (-2.0-3.0); ABG CARBOXYHEMOGLOBIN 1.2 % (0.5-1.5); ABG HCO3 22.3 mmol/L (21.0-28.0); ABG METHEMOGLOBIN 0.2 % (0.0-1.5); ABG OXYGEN CONTENT 10.8 mL/dL (15.0-23.0); ABG OXYGEN SATURATION 99.9 % (94.0-98.0); ABG OXYHEMOGLOBIN 98.5 % (94.0-98.0); ABG PCO2 49 mmHg (32.0-45.0); ABG PH 7.304 (7.350-7.450); ABG TOTAL HEMOGLOBIN 7.4 G/dL (12.0-16.0); PO2, ARTERIAL BG 218.9 mmHg (83.0-108.0); SITE, BLOOD GAS RT BRACHIAL; SOURCE, BLOOD GAS ARTERIAL; TEMPERATURE, FAHRENHEIT, BG 95.7 FAHREN (96.0-98.6)
[2024-06-30 12:55] LABS: O2 DEVICE,BLOOD GAS VENTILATOR (ROOM AIR); PEEP,BG 5 cm H2O; SPONTANEOUS VT, BG 283 ml; VT, ABG 400 ml
[2024-06-30] MEDS: DOPamine 400MG/D5W[STANDARD] 250 ML IV PRN (13:11)
[2024-06-30] MEDS: VASOPRESSIN 40 UNITS in DEXTROSE 5%-WATER 98 ML IV PRN (13:13)
[2024-06-30 14:01] LABS: GLUCOMETER DEV NAME(LOC) ICU.S6; GLUCOSE,POINT OF CARE 165 MG/DL (70-110)
[2024-06-30] MEDS: PHENYLEPHRINE 200 MG/D5%-WATER 250 ML IV PRN (14:46)
[2024-06-30] MEDS: *CLINICAL-MEROPENEM DOSING CLINICAL ONE (15:29)
[2024-06-30 15:50] LABS: ABG BASE EXCESS 3.5 mmol/L (-2.0-3.0); ABG CARBOXYHEMOGLOBIN 1.1 % (0.5-1.5); ABG HCO3 27.2 mmol/L (21.0-28.0); ABG METHEMOGLOBIN 0.1 % (0.0-1.5); ABG OXYGEN CONTENT 10.3 mL/dL (15.0-23.0); ABG OXYGEN SATURATION 92.9 % (94.0-98.0); ABG OXYHEMOGLOBIN 91.8 % (94.0-98.0); ABG PCO2 44 mmHg (32.0-45.0); ABG PH 7.419 (7.350-7.450); ABG TOTAL HEMOGLOBIN 7.9 G/dL (12.0-16.0); PO2, ARTERIAL BG 61.8 mmHg (83.0-108.0); SOURCE, BLOOD GAS ARTERIAL; TEMPERATURE, FAHRENHEIT, BG 95.8 FAHREN (96.0-98.6)
[2024-06-30 15:51] LABS: ALLEN TEST, BLOOD GAS Positive; O2 DEVICE,BLOOD GAS VENTILATOR (ROOM AIR); PEEP,BG 5 cm H2O; SITE, BLOOD GAS LFT RADIAL; SPONTANEOUS VT, BG 339 ml; VT, ABG 330 ml
[2024-06-30] MEDS: MEROPENEM 1 GM in SODIUM CHLORIDE 0.9% 100 ML IV SCH (16:49)
[2024-06-30 17:06] LABS: CALCIUM, TOTAL 8.9 mg/dL (8.8-10.5); CREATININE 2.25 mg/dL (0.60-1.30); MAGNESIUM 2.5 mg/dL (1.80-2.40); PHOSPHORUS 5.8 mg/dL (2.5-4.9); POTASSIUM 3.6 mmol/L (3.5-5.1)
[2024-06-30 23:03] LABS: ABG BASE EXCESS 11.5 mmol/L (-2.0-3.0); ABG CARBOXYHEMOGLOBIN 0.7 % (0.5-1.5); ABG HCO3 34.4 mmol/L (21.0-28.0); ABG OXYGEN CONTENT 13.5 mL/dL (15.0-23.0); ABG OXYGEN SATURATION 99.4 % (94.0-98.0); ABG OXYHEMOGLOBIN 98.7 % (94.0-98.0); ABG PCO2 39 mmHg (32.0-45.0); ABG TOTAL HEMOGLOBIN 9.4 G/dL (12.0-16.0); SOURCE, BLOOD GAS ARTERIAL; TEMPERATURE, FAHRENHEIT, BG 97.8 FAHREN (96.0-98.6)
[2024-06-30 23:14] LABS: ABG A-A DIFF O2 204.1 mmHg (10-20.0); ABG PH 7.558 (7.350-7.450); O2 DEVICE,BLOOD GAS VENT (ROOM AIR); PEEP,BG 5 cm H2O; PO2, ARTERIAL BG 181.8 mmHg (83.0-108.0); SITE, BLOOD GAS ARTERIAL LINE; VT, ABG 330 ml
[2024-06-30 23:43] LABS: EOSINOPHILS % (AUTO) 0 % (1.0-6.0); LYMPHOCYTES % (AUTO) 1.4 % (22.0-44.0); NEUTROPHILS # (AUTO) 29.6 K/uL (1.8-7.7)
[2024-06-30 23:46] LABS: BASOPHILS % (AUTO) 0.7 % (0.0-2.0); HEMOGLOBIN 8.6 g/dL (12.0-16.0); LYMPHOCYTES # (AUTO) 0.5 K/uL (1.0-4.8); MEAN CORPUSCULAR HEMOGLOBIN 29.3 pg (26.0-34.0); MEAN CORPUSCULAR VOLUME 92 fL (80-100); MONOCYTES # (AUTO) 1.7 K/uL (0.1-1.0); MONOCYTES % (AUTO) 5.5 % (2.0-9.0); PLATELET COUNT (AUTO) 230 K/uL (150-450); RED BLOOD CELL COUNT(AUTO) 2.95 MIL/uL (4.00-5.20); RED CELL DISTRIBUTION WIDTH 20.9 % (11.5-14.5)
[2024-06-30 23:49] LABS: NEUTROPHILS % (AUTO) 92.4 % (40.0-70.0)
[2024-06-30 23:53] LABS: CREATININE 2.25 mg/dL (0.60-1.30); POTASSIUM 3.2 mmol/L (3.5-5.1)
[2024-07-01] VITALS (15 sets, daily range): BP systolic 103–172; BP diastolic 52–90; PULSE 59–110; RESP 10–22; TEMP 91.2–95.5; O2SAT 47–100
[2024-07-01 00:03] LABS: BILIRUBIN,TOTAL 1.9 mg/dL (0.1-1.0); MAGNESIUM 2.2 mg/dL (1.80-2.40); PHOSPHORUS 4.7 mg/dL (2.5-4.9); TOTAL PROTEIN, SERUM 6.1 g/dL (6.4-8.2)
[2024-07-01 00:28] LABS: RBC MORPHOLOGY COMMENT ABNORMAL RBC MORPH
[2024-07-01 00:30] LABS: APPEARANCE,URINE HAZY (CLEAR); BILIRUBIN,URINE NEGATIVE (NEGATIVE); COLOR,URINE LIGHT YELLOW (YELLOW); GLUCOSE, URINE (UA) TRACE mg/dL (NEGATIVE); KETONES,URINE NEGATIVE (NEGATIVE); LEUKOCYTE ESTERASE ,URINE MODERATE (NEGATIVE); NITRATE,URINE NEGATIVE (NEGATIVE); OCCULT BLOOD,URINE LARGE (NEGATIVE); PROTEIN,URINE 30-70 mg/dL (NEGATIVE); SPECIFIC GRAVITIY, URINE 1.009 (1.003-1.030); UROBILINOGEN,URINE <=1.0 mg/dL (<=1.0)
[2024-07-01 00:31] LABS: GLUCOMETER DEV NAME(LOC) ICUN.5; GLUCOSE,POINT OF CARE 170 MG/DL (70-110)
[2024-07-01 00:31] LABS: GLUCOMETER DEV NAME(LOC) ICUN.5; GLUCOSE,POINT OF CARE 166 MG/DL (70-110)
[2024-07-01 00:32] LABS: SODIUM,URINE RANDOM 109 mmol/l (20-110)
[2024-07-01 00:47] LABS: UREA NITROGEN,URINE RANDOM 188 mg/dL (350-1000)
[2024-07-01 00:53] LABS: BACTERIA,URINE Few /HPF (None Seen); SQUAMOUS EPITHELIAL CELL,UR Few /LPF (None Seen); YEAST,URINE Many /HPF (None Seen)
[2024-07-01 01:04] LABS: CREATININE,URINE RANDOM 7.9 mg/dL (30.0-125.0)
[2024-07-01] MEDS ORDERED: POTASSIUM CHLORIDE 10% 40 MEQ/30 ML LIQUID UDCUP ONE (02:00)
[2024-07-01] MEDS: POTASSIUM CHLORIDE 10% 40 MEQ/30 ML LIQUID UDCUP NG ONE ×2 (02:03→10:14)
[2024-07-01 03:12] LABS: ABG BASE EXCESS 12.9 mmol/L (-2.0-3.0); ABG CARBOXYHEMOGLOBIN 0.8 % (0.5-1.5); ABG HCO3 35.7 mmol/L (21.0-28.0); ABG OXYGEN CONTENT 12.2 mL/dL (15.0-23.0); ABG OXYGEN SATURATION 99.5 % (94.0-98.0); ABG OXYHEMOGLOBIN 98.7 % (94.0-98.0); ABG PCO2 29 mmHg (32.0-45.0); ABG TOTAL HEMOGLOBIN 8.4 G/dL (12.0-16.0); SOURCE, BLOOD GAS ARTERIAL; TEMPERATURE, FAHRENHEIT, BG 90.2 FAHREN (96.0-98.6)
[2024-07-01 04:56] LABS: BASOPHILS % (AUTO) 0.1 % (0.0-2.0); EOSINOPHILS % (AUTO) 0 % (1.0-6.0); GLUCOMETER DEV NAME(LOC) ICU.S6; GLUCOSE,POINT OF CARE 225 MG/DL (70-110); HEMATOCRIT 26.6 % (36-46); HEMOGLOBIN 8.7 g/dL (12.0-16.0); LYMPHOCYTES # (AUTO) 0.4 K/uL (1.0-4.8); LYMPHOCYTES % (AUTO) 1.5 % (22.0-44.0); MEAN CORPUSCULAR HEMOGLOBIN 29.4 pg (26.0-34.0); MEAN CORPUSCULAR HGB CONC 32.5 G/dL (31.0-37.0); MEAN CORPUSCULAR VOLUME 90 fL (80-100); MONOCYTES # (AUTO) 1.2 K/uL (0.1-1.0); MONOCYTES % (AUTO) 4.2 % (2.0-9.0); NEUTROPHILS # (AUTO) 27.6 K/uL (1.8-7.7); PLATELET COUNT (AUTO) 200 K/uL (150-450); RED BLOOD CELL COUNT(AUTO) 2.95 MIL/uL (4.00-5.20); RED CELL DISTRIBUTION WIDTH 20.6 % (11.5-14.5); WHITE BLOOD COUNT (AUTO) 29.3 K/uL (4.5-11.0)
[2024-07-01 05:03] LABS: NEUTROPHILS % (AUTO) 94.2 % (40.0-70.0)
[2024-07-01 05:22] LABS: VANCOMYCIN,RANDOM 21.6 mcg/mL (25.0-50.0)
[2024-07-01 05:30] LABS: TROPONIN I-HIGH SENSITIVITY 964 ng/L (<51)
[2024-07-01 05:37] LABS: ABG PH 7.677 (7.350-7.450)
[2024-07-01 05:38] LABS: ABG A-A DIFF O2 77.5 mmHg (10-20.0); O2 DEVICE,BLOOD GAS VENT (ROOM AIR); PEEP,BG 5 cm H2O; PO2, ARTERIAL BG 178.6 mmHg (83.0-108.0); SITE, BLOOD GAS ARTERIAL LINE; VT, ABG 330 ml
[2024-07-01 05:51] LABS: RBC MORPHOLOGY COMMENT ABNORMAL RBC MORPH
[2024-07-01 08:36] LABS: BILIRUBIN,TOTAL 1.8 mg/dL (0.1-1.0); CALCIUM, TOTAL 8.7 mg/dL (8.8-10.5); CREATININE 2.13 mg/dL (0.60-1.30); MAGNESIUM 2.1 mg/dL (1.80-2.40); PHOSPHORUS 3.8 mg/dL (2.5-4.9); TOTAL PROTEIN, SERUM 6.1 g/dL (6.4-8.2)
[2024-07-01 08:37] LABS: POTASSIUM 2.9 mmol/L (3.5-5.1)
[2024-07-01 09:39] LABS: ABG A-A DIFF O2 102.1 mmHg (10-20.0); ABG BASE EXCESS 12.3 mmol/L (-2.0-3.0); ABG CARBOXYHEMOGLOBIN 0.5 % (0.5-1.5); ABG METHEMOGLOBIN 0.3 % (0.0-1.5); ABG OXYGEN CONTENT 14.6 mL/dL (15.0-23.0); ABG OXYGEN SATURATION 99.1 % (94.0-98.0); ABG OXYHEMOGLOBIN 98.3 % (94.0-98.0); ABG PCO2 33 mmHg (32.0-45.0); ABG PH 7.619 (7.350-7.450); ABG TOTAL HEMOGLOBIN 10.3 G/dL (12.0-16.0); O2 DEVICE,BLOOD GAS VENTILATOR (ROOM AIR); PO2, ARTERIAL BG 149.1 mmHg (83.0-108.0); SITE, BLOOD GAS ARTERIAL LINE; SOURCE, BLOOD GAS ARTERIAL; TEMPERATURE, FAHRENHEIT, BG 89.9 FAHREN (96.0-98.6); VT, ABG 330 ml
[2024-07-01 09:40] LABS: PEEP,BG 5 cm H2O
[2024-07-01 14:17] LABS: ABG HCO3 29.3 mmol/L (21.0-28.0); ABG OXYGEN CONTENT 11.9 mL/dL (15.0-23.0); ABG OXYGEN SATURATION 97.6 % (94.0-98.0); ABG OXYHEMOGLOBIN 96.6 % (94.0-98.0); ABG PCO2 41 mmHg (32.0-45.0); ABG PH 7.479 (7.350-7.450); ABG TOTAL HEMOGLOBIN 8.6 G/dL (12.0-16.0); SITE, BLOOD GAS ARTERIAL LINE; SOURCE, BLOOD GAS ARTERIAL; TEMPERATURE, FAHRENHEIT, BG 91.5 FAHREN (96.0-98.6)
[2024-07-01 14:18] LABS: ABG A-A DIFF O2 78.1 mmHg (10-20.0); O2 DEVICE,BLOOD GAS VENTILATOR (ROOM AIR); PEEP,BG 5 cm H2O; VT, ABG 330 ml
[2024-07-01 16:22] LABS: ALBUMIN 1.9 g/dL (3.4-5.0); BILIRUBIN,TOTAL 1.6 mg/dL (0.1-1.0); CALCIUM, TOTAL 8.7 mg/dL (8.8-10.5); CREATININE 2.38 mg/dL (0.60-1.30); MAGNESIUM 2.1 mg/dL (1.80-2.40); PHOSPHORUS 4.9 mg/dL (2.5-4.9); POTASSIUM 3.3 mmol/L (3.5-5.1); TOTAL PROTEIN, SERUM 6.1 g/dL (6.4-8.2)
[2024-07-01] MEDS: MEROPENEM 500 MG in SODIUM CHLORIDE 0.9% 50 ML IV SCH (16:42)
[2024-07-01 18:16] LABS: GLUCOMETER DEV NAME(LOC) ICUN.5; GLUCOSE,POINT OF CARE 114 MG/DL (70-110)
[2024-07-01 20:33] LABS: BILIRUBIN,TOTAL 1.6 mg/dL (0.1-1.0); CALCIUM, TOTAL 8.7 mg/dL (8.8-10.5); CREATININE 2.33 mg/dL (0.60-1.30); MAGNESIUM 2.2 mg/dL (1.80-2.40); PHOSPHORUS 4.8 mg/dL (2.5-4.9); POTASSIUM 3.2 mmol/L (3.5-5.1)
[2024-07-01 20:34] LABS: ALBUMIN 1.8 g/dL (3.4-5.0)
[2024-07-01] MEDS ORDERED: ALBUTEROL SULFATE 2.5 MG/0.5 ML NEB SOLUTION NEB PRN (22:00)
[2024-07-01] MEDS ORDERED: IPRATROPIUM BROMIDE 0.5 MG/2.5 ML NEB SOLUTION NEB PRN (22:00)
[2024-07-02] VITALS (13 sets, daily range): BP systolic 83–117; BP diastolic 49–59; PULSE 97–146; RESP 16–25; TEMP 92.3–97.6; O2SAT 74–99
[2024-07-02 01:36] LABS: GLUCOMETER DEV NAME(LOC) ICU.S6; GLUCOSE,POINT OF CARE 110 MG/DL (70-110)
[2024-07-02 03:12] LABS: ALBUMIN 1.8 g/dL (3.4-5.0); BILIRUBIN,TOTAL 1.6 mg/dL (0.1-1.0); CALCIUM, TOTAL 8.6 mg/dL (8.8-10.5); CREATININE 2.31 mg/dL (0.60-1.30); MAGNESIUM 2.2 mg/dL (1.80-2.40); PHOSPHORUS 5.1 mg/dL (2.5-4.9); POTASSIUM 3.1 mmol/L (3.5-5.1); TOTAL PROTEIN, SERUM 5.8 g/dL (6.4-8.2)
[2024-07-02 03:45] LABS: ABG BASE EXCESS -0.3 mmol/L (-2.0-3.0); ABG CARBOXYHEMOGLOBIN 1.1 % (0.5-1.5); ABG HCO3 24.4 mmol/L (21.0-28.0); ABG OXYGEN CONTENT 10.7 mL/dL (15.0-23.0); ABG OXYGEN SATURATION 98.1 % (94.0-98.0); ABG PCO2 32 mmHg (32.0-45.0); ABG PH 7.484 (7.350-7.450); ABG TOTAL HEMOGLOBIN 7.7 G/dL (12.0-16.0); PO2, ARTERIAL BG 97.7 mmHg (83.0-108.0); TEMPERATURE, FAHRENHEIT, BG 93.9 FAHREN (96.0-98.6)
[2024-07-02 03:46] LABS: O2 DEVICE,BLOOD GAS VENTILATOR (ROOM AIR); SITE, BLOOD GAS LFT RADIAL; SOURCE, BLOOD GAS ARTERIAL LINE
[2024-07-02 03:47] LABS: PEEP,BG 5 cm H2O; SPONTANEOUS VT, BG 311 ml; VT, ABG 330 ml
[2024-07-02 05:59] LABS: BASOPHILS % (AUTO) 0.3 % (0.0-2.0); EOSINOPHILS % (AUTO) 0.5 % (1.0-6.0); HEMATOCRIT 27.7 % (36-46); HEMOGLOBIN 8.7 g/dL (12.0-16.0); LYMPHOCYTES # (AUTO) 0.5 K/uL (1.0-4.8); LYMPHOCYTES % (AUTO) 1.7 % (22.0-44.0); MEAN CORPUSCULAR HGB CONC 31.5 G/dL (31.0-37.0); MEAN CORPUSCULAR VOLUME 92 fL (80-100); MONOCYTES # (AUTO) 0.9 K/uL (0.1-1.0); MONOCYTES % (AUTO) 3.3 % (2.0-9.0); NEUTROPHILS # (AUTO) 26.9 K/uL (1.8-7.7); PLATELET COUNT (AUTO) 165 K/uL (150-450); RED BLOOD CELL COUNT(AUTO) 3.01 MIL/uL (4.00-5.20); RED CELL DISTRIBUTION WIDTH 21.5 % (11.5-14.5); WHITE BLOOD COUNT (AUTO) 28.6 K/uL (4.5-11.0)
[2024-07-02 06:04] LABS: NEUTROPHILS % (AUTO) 94.2 % (40.0-70.0)
[2024-07-02 07:01] LABS: GLUCOMETER DEV NAME(LOC) ICU.S6; GLUCOSE,POINT OF CARE 106 MG/DL (70-110)
[2024-07-02] MEDS: POTASSIUM CHLORIDE 10% 40 MEQ/30 ML LIQUID UDCUP NG ONE (08:28)
[2024-07-02] MEDS ORDERED: SODIUM CHLORIDE 0.9% 250 ML IV ONE (09:14)
[2024-07-02 09:24] LABS: ALBUMIN 1.8 g/dL (3.4-5.0); BILIRUBIN,TOTAL 1.6 mg/dL (0.1-1.0); CALCIUM, TOTAL 8.5 mg/dL (8.8-10.5); CREATININE 2.32 mg/dL (0.60-1.30); MAGNESIUM 2.2 mg/dL (1.80-2.40); PHOSPHORUS 5.2 mg/dL (2.5-4.9); POTASSIUM 3.2 mmol/L (3.5-5.1); TOTAL PROTEIN, SERUM 5.8 g/dL (6.4-8.2)
[2024-07-02] MEDS ORDERED: 0.9% SODIUM CHLORIDE 10 ML SYRINGE IVP ONE (12:00)
[2024-07-02] MEDS ORDERED: 0.9% SODIUM CHLORIDE 1,000 ML BAG IV ONE (12:00)
[2024-07-02 13:36] LABS: ABG BASE EXCESS 7.9 mmol/L (-2.0-3.0); ABG CARBOXYHEMOGLOBIN 1.1 % (0.5-1.5); ABG METHEMOGLOBIN 0.3 % (0.0-1.5); ABG OXYGEN CONTENT 12.4 mL/dL (15.0-23.0); ABG OXYHEMOGLOBIN 95.6 % (94.0-98.0); ABG PCO2 42 mmHg (32.0-45.0); ABG PH 7.486 (7.350-7.450); ABG TOTAL HEMOGLOBIN 9.1 G/dL (12.0-16.0); PO2, ARTERIAL BG 85.6 mmHg (83.0-108.0); SOURCE, BLOOD GAS ARTERIAL; TEMPERATURE, FAHRENHEIT, BG 96.7 FAHREN (96.0-98.6)
[2024-07-02 13:37] LABS: ABG A-A DIFF O2 79.3 mmHg (10-20.0); O2 DEVICE,BLOOD GAS VENTILATOR (ROOM AIR); PEEP,BG 5 cm H2O; SITE, BLOOD GAS ARTERIAL LINE; VT, ABG 330 ml
[2024-07-02] MEDS: ALBUMIN HUMAN 25%-12.5GM/50ML 50 ML IV SCH (14:04)
[2024-07-02 15:21] LABS: ALBUMIN 2.1 g/dL (3.4-5.0); BILIRUBIN,TOTAL 1.6 mg/dL (0.1-1.0); CALCIUM, TOTAL 8.5 mg/dL (8.8-10.5); CREATININE 2.41 mg/dL (0.60-1.30); MAGNESIUM 2.3 mg/dL (1.80-2.40); PHOSPHORUS 5.7 mg/dL (2.5-4.9); POTASSIUM 3.7 mmol/L (3.5-5.1)
[2024-07-02] MEDS: MIDODRINE HCL 5 MG TABLET PO SCH (15:38)
[2024-07-02 17:31] LABS: GLUCOMETER DEV NAME(LOC) ICUN.5; GLUCOSE,POINT OF CARE 144 MG/DL (70-110)
[2024-07-02 19:05] LABS: GLUCOMETER DEV NAME(LOC) ICUN.5; GLUCOSE,POINT OF CARE 120 MG/DL (70-110)
[2024-07-03] VITALS (14 sets, daily range): BP systolic 100–120; BP diastolic 46–58; PULSE 84–114; RESP 16–19; TEMP 97.7–98.3; O2SAT 87–98
[2024-07-03 00:51] LABS: GLUCOMETER DEV NAME(LOC) ICUN.5; GLUCOSE,POINT OF CARE 153 MG/DL (70-110)
[2024-07-03 05:44] LABS: BASOPHILS % (AUTO) 0.3 % (0.0-2.0); EOSINOPHILS % (AUTO) 1.4 % (1.0-6.0); HEMOGLOBIN 7.5 g/dL (12.0-16.0); LYMPHOCYTES # (AUTO) 0.4 K/uL (1.0-4.8); MEAN CORPUSCULAR HEMOGLOBIN 29.2 pg (26.0-34.0); MEAN CORPUSCULAR HGB CONC 31.2 G/dL (31.0-37.0); MEAN CORPUSCULAR VOLUME 93 fL (80-100); MONOCYTES % (AUTO) 4.5 % (2.0-9.0); NEUTROPHILS # (AUTO) 20.6 K/uL (1.8-7.7); PLATELET COUNT (AUTO) 138 K/uL (150-450); RED BLOOD CELL COUNT(AUTO) 2.57 MIL/uL (4.00-5.20); RED CELL DISTRIBUTION WIDTH 21.3 % (11.5-14.5); WHITE BLOOD COUNT (AUTO) 22.5 K/uL (4.5-11.0)
[2024-07-03 05:52] LABS: NEUTROPHILS % (AUTO) 91.8 % (40.0-70.0)
[2024-07-03 06:03] LABS: ALBUMIN 2.3 g/dL (3.4-5.0); BILIRUBIN,TOTAL 1.5 mg/dL (0.1-1.0); CALCIUM, TOTAL 8.3 mg/dL (8.8-10.5); CREATININE 2.56 mg/dL (0.60-1.30); POTASSIUM 3.5 mmol/L (3.5-5.1)
[2024-07-03 06:55] LABS: GLUCOMETER DEV NAME(LOC) ICU.S6; GLUCOSE,POINT OF CARE 159 MG/DL (70-110)
[2024-07-03] MEDS ORDERED: VANCOMYCIN 1GM/WATER(PEG/NADA) 200 ML IV PRN (08:00)
[2024-07-03] MEDS ORDERED: VANCOMYCIN 750 MG/WATER(PEG) 150 ML IV SCH (08:00)
[2024-07-03 12:40] LABS: GLUCOMETER DEV NAME(LOC) ICU.S6; GLUCOSE,POINT OF CARE 117 MG/DL (70-110)
[2024-07-03 18:55] LABS: GLUCOMETER DEV NAME(LOC) ICU.S6; GLUCOSE,POINT OF CARE 146 MG/DL (70-110)
[2024-07-03] MEDS: DOXYCYCLINE HYCLATE 100 MG in DEXTROSE 5%-WATER 100 ML IV SCH (23:53)
[2024-07-04] VITALS (21 sets, daily range): BP systolic 106–135; BP diastolic 46–56; PULSE 72–98; RESP 16–22; TEMP 94.8–98.1; O2SAT 89–100
[2024-07-04] MEDS ORDERED: SODIUM CHLORIDE 0.9% 250 ML IV ONE ×3 (01:39→11:03)
[2024-07-04 01:42] LABS: BASOPHILS % (AUTO) 0.7 % (0.0-2.0); EOSINOPHILS % (AUTO) 0.8 % (1.0-6.0); LYMPHOCYTES # (AUTO) 0.4 K/uL (1.0-4.8); LYMPHOCYTES % (AUTO) 2.2 % (22.0-44.0); MEAN CORPUSCULAR HEMOGLOBIN 28.9 pg (26.0-34.0); MEAN CORPUSCULAR HGB CONC 30.8 G/dL (31.0-37.0); MEAN CORPUSCULAR VOLUME 94 fL (80-100); MONOCYTES # (AUTO) 0.9 K/uL (0.1-1.0); MONOCYTES % (AUTO) 4.5 % (2.0-9.0); NEUTROPHILS # (AUTO) 17.4 K/uL (1.8-7.7); PLATELET COUNT (AUTO) 114 K/uL (150-450); RED BLOOD CELL COUNT(AUTO) 2.24 MIL/uL (4.00-5.20); RED CELL DISTRIBUTION WIDTH 22.2 % (11.5-14.5)
[2024-07-04 02:19] LABS: NEUTROPHILS % (AUTO) 91.8 % (40.0-70.0)
[2024-07-04 02:21] LABS: HEMOGLOBIN 6.5 g/dL (12.0-16.0)
[2024-07-04 02:26] LABS: GLUCOMETER DEV NAME(LOC) ICUN.5; GLUCOSE,POINT OF CARE 155 MG/DL (70-110)
[2024-07-04 06:09] LABS: BASOPHILS % (AUTO) 0.1 % (0.0-2.0); EOSINOPHILS % (AUTO) 0.7 % (1.0-6.0); LYMPHOCYTES # (AUTO) 0.3 K/uL (1.0-4.8); LYMPHOCYTES % (AUTO) 1.6 % (22.0-44.0); MEAN CORPUSCULAR HEMOGLOBIN 28.8 pg (26.0-34.0); MEAN CORPUSCULAR HGB CONC 30.8 G/dL (31.0-37.0); MEAN CORPUSCULAR VOLUME 93 fL (80-100); MONOCYTES # (AUTO) 0.9 K/uL (0.1-1.0); MONOCYTES % (AUTO) 4.9 % (2.0-9.0); PLATELET COUNT (AUTO) 124 K/uL (150-450); RED BLOOD CELL COUNT(AUTO) 2.16 MIL/uL (4.00-5.20); RED CELL DISTRIBUTION WIDTH 21.8 % (11.5-14.5); WHITE BLOOD COUNT (AUTO) 18.3 K/uL (4.5-11.0)
[2024-07-04 06:12] LABS: HEMOGLOBIN 6.2 g/dL (12.0-16.0)
[2024-07-04 06:13] LABS: HEMATOCRIT 20.1 % (36-46); NEUTROPHILS % (AUTO) 92.7 % (40.0-70.0)
[2024-07-04 07:00] LABS: ALBUMIN 2.5 g/dL (3.4-5.0); BILIRUBIN,TOTAL 1.6 mg/dL (0.1-1.0); CALCIUM, TOTAL 7.7 mg/dL (8.8-10.5); CREATININE 2.54 mg/dL (0.60-1.30); TOTAL PROTEIN, SERUM 5.8 g/dL (6.4-8.2)
[2024-07-04 08:48] LABS: BASOPHILS % (AUTO) 0.1 % (0.0-2.0); EOSINOPHILS % (AUTO) 0.7 % (1.0-6.0); HEMATOCRIT 25.2 % (36-46); LYMPHOCYTES # (AUTO) 0.3 K/uL (1.0-4.8); LYMPHOCYTES % (AUTO) 1.4 % (22.0-44.0); MEAN CORPUSCULAR HEMOGLOBIN 29.1 pg (26.0-34.0); MEAN CORPUSCULAR HGB CONC 31.8 G/dL (31.0-37.0); MEAN CORPUSCULAR VOLUME 91 fL (80-100); MONOCYTES # (AUTO) 0.8 K/uL (0.1-1.0); MONOCYTES % (AUTO) 4.4 % (2.0-9.0); NEUTROPHILS # (AUTO) 17.4 K/uL (1.8-7.7); PLATELET COUNT (AUTO) 109 K/uL (150-450); RED BLOOD CELL COUNT(AUTO) 2.76 MIL/uL (4.00-5.20); RED CELL DISTRIBUTION WIDTH 19.5 % (11.5-14.5); WHITE BLOOD COUNT (AUTO) 18.6 K/uL (4.5-11.0)
[2024-07-04] MEDS: PANTOPRAZOLE SODIUM 80 MG in SODIUM CHLORIDE 0.9% 100 ML IV SCH (08:52)
[2024-07-04 08:59] LABS: NEUTROPHILS % (AUTO) 93.4 % (40.0-70.0)
[2024-07-04 09:05] LABS: GLUCOMETER DEV NAME(LOC) ICUN.5; GLUCOSE,POINT OF CARE 146 MG/DL (70-110)
[2024-07-04 11:06] LABS: ABG BASE EXCESS 2.9 mmol/L (-2.0-3.0); ABG CARBOXYHEMOGLOBIN 1.1 % (0.5-1.5); ABG HCO3 26.8 mmol/L (21.0-28.0); ABG METHEMOGLOBIN 0.3 % (0.0-1.5); ABG OXYGEN CONTENT 11.5 mL/dL (15.0-23.0); ABG OXYGEN SATURATION 95.2 % (94.0-98.0); ABG OXYHEMOGLOBIN 93.9 % (94.0-98.0); ABG PCO2 42 mmHg (32.0-45.0); ABG PH 7.431 (7.350-7.450); ABG TOTAL HEMOGLOBIN 8.6 G/dL (12.0-16.0); PO2, ARTERIAL BG 72.9 mmHg (83.0-108.0); SITE, BLOOD GAS ARTERIAL LINE; SOURCE, BLOOD GAS ARTERIAL
[2024-07-04 11:07] LABS: ABG A-A DIFF O2 92.2 mmHg (10-20.0); O2 DEVICE,BLOOD GAS VENTILATOR (ROOM AIR); PEEP,BG 5 cm H2O; SPONTANEOUS VT, BG 316 ml; VT, ABG 330 ml
[2024-07-04 11:35] LABS: GLUCOMETER DEV NAME(LOC) ICU.S6; GLUCOSE,POINT OF CARE 132 MG/DL (70-110)
[2024-07-04] MEDS: POTASSIUM CHLORIDE 10% 40 MEQ/30 ML LIQUID UDCUP NG ONE (13:39)
[2024-07-04] MEDS: HEPARIN SODIUM,PORCINE 1,000 UNITS/ML VIAL IVCATH PRN ×2 (13:41)
[2024-07-04 14:20] LABS: EOSINOPHILS % (AUTO) 0.8 % (1.0-6.0); HEMATOCRIT 24.7 % (36-46); HEMOGLOBIN 7.9 g/dL (12.0-16.0); LYMPHOCYTES # (AUTO) 0.2 K/uL (1.0-4.8); LYMPHOCYTES % (AUTO) 1.1 % (22.0-44.0); MEAN CORPUSCULAR HEMOGLOBIN 29.2 pg (26.0-34.0); MEAN CORPUSCULAR HGB CONC 31.9 G/dL (31.0-37.0); MEAN CORPUSCULAR VOLUME 92 fL (80-100); MONOCYTES # (AUTO) 0.9 K/uL (0.1-1.0); MONOCYTES % (AUTO) 4.7 % (2.0-9.0); NEUTROPHILS # (AUTO) 18.5 K/uL (1.8-7.7); PLATELET COUNT (AUTO) 134 K/uL (150-450); RED BLOOD CELL COUNT(AUTO) 2.69 MIL/uL (4.00-5.20); RED CELL DISTRIBUTION WIDTH 20.5 % (11.5-14.5); WHITE BLOOD COUNT (AUTO) 19.9 K/uL (4.5-11.0)
[2024-07-04 14:21] LABS: NEUTROPHILS % (AUTO) 93.4 % (40.0-70.0)
[2024-07-04 17:31] LABS: GLUCOMETER DEV NAME(LOC) ICU.S6; GLUCOSE,POINT OF CARE 149 MG/DL (70-110)
[2024-07-04 20:48] LABS: BASOPHILS % (AUTO) 0.1 % (0.0-2.0); EOSINOPHILS % (AUTO) 0.6 % (1.0-6.0); HEMATOCRIT 24.6 % (36-46); HEMOGLOBIN 7.8 g/dL (12.0-16.0); LYMPHOCYTES # (AUTO) 0.2 K/uL (1.0-4.8); LYMPHOCYTES % (AUTO) 1.2 % (22.0-44.0); MEAN CORPUSCULAR HGB CONC 31.6 G/dL (31.0-37.0); MEAN CORPUSCULAR VOLUME 92 fL (80-100); MONOCYTES # (AUTO) 0.9 K/uL (0.1-1.0); MONOCYTES % (AUTO) 4.8 % (2.0-9.0); NEUTROPHILS # (AUTO) 18.1 K/uL (1.8-7.7); PLATELET COUNT (AUTO) 95 K/uL (150-450); RED BLOOD CELL COUNT(AUTO) 2.68 MIL/uL (4.00-5.20); WHITE BLOOD COUNT (AUTO) 19.4 K/uL (4.5-11.0)
[2024-07-04 20:58] LABS: NEUTROPHILS % (AUTO) 93.3 % (40.0-70.0)
[2024-07-05] VITALS (17 sets, daily range): BP systolic 110–136; BP diastolic 44–57; PULSE 79–111; RESP 16–24; TEMP 96.1–98.4; O2SAT 93–97
[2024-07-05] MEDS ORDERED: SODIUM CHLORIDE 0.9% 500 ML IV ONE (00:14)
[2024-07-05 02:11] LABS: GLUCOMETER DEV NAME(LOC) ICUN.5; GLUCOSE,POINT OF CARE 129 MG/DL (70-110)
[2024-07-05 02:21] LABS: EOSINOPHILS % (AUTO) 0.9 % (1.0-6.0); HEMATOCRIT 23.8 % (36-46); HEMOGLOBIN 7.7 g/dL (12.0-16.0); LYMPHOCYTES # (AUTO) 0.2 K/uL (1.0-4.8); LYMPHOCYTES % (AUTO) 1.3 % (22.0-44.0); MEAN CORPUSCULAR HEMOGLOBIN 29.3 pg (26.0-34.0); MEAN CORPUSCULAR HGB CONC 32.2 G/dL (31.0-37.0); MEAN CORPUSCULAR VOLUME 91 fL (80-100); NEUTROPHILS # (AUTO) 17.7 K/uL (1.8-7.7); PLATELET COUNT (AUTO) 110 K/uL (150-450); RED BLOOD CELL COUNT(AUTO) 2.62 MIL/uL (4.00-5.20); RED CELL DISTRIBUTION WIDTH 20.7 % (11.5-14.5); WHITE BLOOD COUNT (AUTO) 19.1 K/uL (4.5-11.0)
[2024-07-05 02:22] LABS: NEUTROPHILS % (AUTO) 92.8 % (40.0-70.0)
[2024-07-05 06:08] LABS: ALBUMIN 2.1 g/dL (3.4-5.0); BILIRUBIN,TOTAL 1.5 mg/dL (0.1-1.0); CALCIUM, TOTAL 7.7 mg/dL (8.8-10.5); CREATININE 2.55 mg/dL (0.60-1.30); TOTAL PROTEIN, SERUM 5.6 g/dL (6.4-8.2); VANCOMYCIN,RANDOM 25.2 mcg/mL (25.0-50.0)
[2024-07-05 06:12] LABS: POTASSIUM 2.9 mmol/L (3.5-5.1)
[2024-07-05] MEDS: POTASSIUM CHL 10 MEQ/WATER 50 ML IV ONE (07:50)
[2024-07-05] MEDS: EPOETIN ALFA 10,000 UNITS/ML VIAL SQ SCH (08:34)
[2024-07-05 08:46] LABS: BASOPHILS % (AUTO) 0.1 % (0.0-2.0); EOSINOPHILS % (AUTO) 0.8 % (1.0-6.0); HEMATOCRIT 24.3 % (36-46); HEMOGLOBIN 7.5 g/dL (12.0-16.0); LYMPHOCYTES # (AUTO) 0.2 K/uL (1.0-4.8); MEAN CORPUSCULAR HEMOGLOBIN 28.4 pg (26.0-34.0); MEAN CORPUSCULAR HGB CONC 30.9 G/dL (31.0-37.0); MEAN CORPUSCULAR VOLUME 92 fL (80-100); MONOCYTES # (AUTO) 1.1 K/uL (0.1-1.0); MONOCYTES % (AUTO) 5.9 % (2.0-9.0); NEUTROPHILS # (AUTO) 17.7 K/uL (1.8-7.7); PLATELET COUNT (AUTO) 107 K/uL (150-450); RED BLOOD CELL COUNT(AUTO) 2.64 MIL/uL (4.00-5.20); RED CELL DISTRIBUTION WIDTH 20.3 % (11.5-14.5); WHITE BLOOD COUNT (AUTO) 19.2 K/uL (4.5-11.0)
[2024-07-05 08:50] LABS: NEUTROPHILS % (AUTO) 92.2 % (40.0-70.0)
[2024-07-05] MEDS: POTASSIUM CHL 10 MEQ/WATER 50 ML IV SCH (08:54)
[2024-07-05 10:16] LABS: MAGNESIUM 2.1 mg/dL (1.80-2.40); PHOSPHORUS 4.6 mg/dL (2.5-4.9)
[2024-07-05 12:10] LABS: GLUCOMETER DEV NAME(LOC) ICU.S6; GLUCOSE,POINT OF CARE 131 MG/DL (70-110)
[2024-07-05 12:50] LABS: GLUCOMETER DEV NAME(LOC) ICUN.5; GLUCOSE,POINT OF CARE 127 MG/DL (70-110)
[2024-07-05] MEDS: FUROSEMIDE 40 MG/4 ML VIAL IVP ONE (13:18)
[2024-07-05 14:40] LABS: BASOPHILS % (AUTO) 0.2 % (0.0-2.0); EOSINOPHILS % (AUTO) 0.3 % (1.0-6.0); HEMATOCRIT 24.4 % (36-46); HEMOGLOBIN 7.7 g/dL (12.0-16.0); LYMPHOCYTES # (AUTO) 0.2 K/uL (1.0-4.8); LYMPHOCYTES % (AUTO) 1.1 % (22.0-44.0); MEAN CORPUSCULAR HGB CONC 31.5 G/dL (31.0-37.0); MEAN CORPUSCULAR VOLUME 92 fL (80-100); MONOCYTES # (AUTO) 1.2 K/uL (0.1-1.0); NEUTROPHILS # (AUTO) 17.9 K/uL (1.8-7.7); PLATELET COUNT (AUTO) 114 K/uL (150-450); RED BLOOD CELL COUNT(AUTO) 2.65 MIL/uL (4.00-5.20); RED CELL DISTRIBUTION WIDTH 21.5 % (11.5-14.5); WHITE BLOOD COUNT (AUTO) 19.4 K/uL (4.5-11.0)
[2024-07-05 14:42] LABS: NEUTROPHILS % (AUTO) 92.4 % (40.0-70.0)
[2024-07-05 15:13] LABS: PLATELET MORPHOLOGY COMMENT LARGE PLTS PRESENT; RBC MORPHOLOGY COMMENT NORMAL RBC MORPH
[2024-07-05 20:11] LABS: GLUCOMETER DEV NAME(LOC) ICU.S6; GLUCOSE,POINT OF CARE 136 MG/DL (70-110)
[2024-07-05 20:16] LABS: BASOPHILS % (AUTO) 0.2 % (0.0-2.0); EOSINOPHILS % (AUTO) 0.9 % (1.0-6.0); HEMOGLOBIN 7.5 g/dL (12.0-16.0); LYMPHOCYTES # (AUTO) 0.2 K/uL (1.0-4.8); MEAN CORPUSCULAR HEMOGLOBIN 28.9 pg (26.0-34.0); MEAN CORPUSCULAR HGB CONC 31.2 G/dL (31.0-37.0); MEAN CORPUSCULAR VOLUME 93 fL (80-100); MONOCYTES # (AUTO) 1.1 K/uL (0.1-1.0); MONOCYTES % (AUTO) 6.1 % (2.0-9.0); NEUTROPHILS # (AUTO) 16.7 K/uL (1.8-7.7); NEUTROPHILS % (AUTO) 91.8 % (40.0-70.0); RED BLOOD CELL COUNT(AUTO) 2.59 MIL/uL (4.00-5.20); RED CELL DISTRIBUTION WIDTH 20.7 % (11.5-14.5); WHITE BLOOD COUNT (AUTO) 18.1 K/uL (4.5-11.0)
[2024-07-05 20:31] LABS: PLATELET COUNT (AUTO) 95 K/uL (150-450)
[2024-07-05 20:32] LABS: PLATELET MORPHOLOGY COMMENT LARGE PLTS PRESENT; RBC MORPHOLOGY COMMENT NORMAL RBC MORPH
[2024-07-06] VITALS (20 sets, daily range): BP systolic 101–129; BP diastolic 40–86; PULSE 79–120; RESP 15–35; TEMP 97.8–98.9; O2SAT 95–99
[2024-07-06 06:14] LABS: BASOPHILS % (AUTO) 0.1 % (0.0-2.0); EOSINOPHILS % (AUTO) 0.4 % (1.0-6.0); HEMATOCRIT 22.6 % (36-46); HEMOGLOBIN 7.1 g/dL (12.0-16.0); LYMPHOCYTES # (AUTO) 0.2 K/uL (1.0-4.8); LYMPHOCYTES % (AUTO) 1.2 % (22.0-44.0); MEAN CORPUSCULAR HGB CONC 31.3 G/dL (31.0-37.0); MEAN CORPUSCULAR VOLUME 93 fL (80-100); MONOCYTES # (AUTO) 1.1 K/uL (0.1-1.0); MONOCYTES % (AUTO) 6.7 % (2.0-9.0); NEUTROPHILS # (AUTO) 14.6 K/uL (1.8-7.7); PLATELET COUNT (AUTO) 90 K/uL (150-450); RED BLOOD CELL COUNT(AUTO) 2.44 MIL/uL (4.00-5.20); RED CELL DISTRIBUTION WIDTH 20.8 % (11.5-14.5); WHITE BLOOD COUNT (AUTO) 15.9 K/uL (4.5-11.0)
[2024-07-06 06:20] LABS: NEUTROPHILS % (AUTO) 91.6 % (40.0-70.0)
[2024-07-06 06:29] LABS: ALBUMIN 1.9 g/dL (3.4-5.0); BILIRUBIN,TOTAL 1.3 mg/dL (0.1-1.0); CALCIUM, TOTAL 7.1 mg/dL (8.8-10.5); CREATININE 2.69 mg/dL (0.60-1.30); MAGNESIUM 1.9 mg/dL (1.80-2.40); POTASSIUM 3.4 mmol/L (3.5-5.1); TOTAL PROTEIN, SERUM 5.6 g/dL (6.4-8.2); URIC ACID 8.3 mg/dL (2.6-7.2)
[2024-07-06 08:36] LABS: PLATELET MORPHOLOGY COMMENT LARGE PLTS PRESENT
[2024-07-06] MEDS: POTASSIUM CHLORIDE 10% 40 MEQ/30 ML LIQUID UDCUP NG ONE (10:22)
[2024-07-06 12:45] LABS: GLUCOMETER DEV NAME(LOC) ICUN.5; GLUCOSE,POINT OF CARE 136 MG/DL (70-110)
[2024-07-06 12:45] LABS: GLUCOMETER DEV NAME(LOC) ICUN.5; GLUCOSE,POINT OF CARE 143 MG/DL (70-110)
[2024-07-06 17:32] LABS: HEMATOCRIT 21.5 % (36-46)
[2024-07-06 17:36] LABS: HEMOGLOBIN 6.7 g/dL (12.0-16.0)
[2024-07-06] MEDS ORDERED: SODIUM CHLORIDE 0.9% 500 ML IV ONE (18:11)
[2024-07-06 21:02] LABS: HEMATOCRIT 26.8 % (36-46); HEMOGLOBIN 8.6 g/dL (12.0-16.0)
[2024-07-06 22:05] LABS: GLUCOMETER DEV NAME(LOC) ICUN.5; GLUCOSE,POINT OF CARE 126 MG/DL (70-110)
[2024-07-07] VITALS (16 sets, daily range): BP systolic 90–113; BP diastolic 51–75; PULSE 76–91; RESP 16–35; TEMP 97.1–98.4; O2SAT 92–97
[2024-07-07] MEDS ORDERED: SODIUM CHLORIDE 0.9% 250 ML IV ONE (03:26)
[2024-07-07 05:16] LABS: GLUCOMETER DEV NAME(LOC) ICUN.5; GLUCOSE,POINT OF CARE 113 MG/DL (70-110)
[2024-07-07 05:16] LABS: GLUCOMETER DEV NAME(LOC) ICUN.5; GLUCOSE,POINT OF CARE 138 MG/DL (70-110)
[2024-07-07 06:18] LABS: BASOPHILS % (AUTO) 0.1 % (0.0-2.0); EOSINOPHILS % (AUTO) 0.6 % (1.0-6.0); HEMATOCRIT 25.9 % (36-46); HEMOGLOBIN 8.4 g/dL (12.0-16.0); LYMPHOCYTES # (AUTO) 0.3 K/uL (1.0-4.8); LYMPHOCYTES % (AUTO) 1.8 % (22.0-44.0); MEAN CORPUSCULAR HEMOGLOBIN 30.2 pg (26.0-34.0); MEAN CORPUSCULAR HGB CONC 32.4 G/dL (31.0-37.0); MEAN CORPUSCULAR VOLUME 93 fL (80-100); MONOCYTES # (AUTO) 0.8 K/uL (0.1-1.0); MONOCYTES % (AUTO) 6.1 % (2.0-9.0); NEUTROPHILS # (AUTO) 12.7 K/uL (1.8-7.7); PLATELET COUNT (AUTO) 101 K/uL (150-450); RED BLOOD CELL COUNT(AUTO) 2.79 MIL/uL (4.00-5.20); RED CELL DISTRIBUTION WIDTH 19.2 % (11.5-14.5); WHITE BLOOD COUNT (AUTO) 13.9 K/uL (4.5-11.0)
[2024-07-07 06:23] LABS: NEUTROPHILS % (AUTO) 91.4 % (40.0-70.0)
[2024-07-07 06:35] LABS: ALBUMIN 1.9 g/dL (3.4-5.0); BILIRUBIN,TOTAL 1.5 mg/dL (0.1-1.0); CALCIUM, TOTAL 7.9 mg/dL (8.8-10.5); CREATININE 2.69 mg/dL (0.60-1.30); POTASSIUM 3.9 mmol/L (3.5-5.1); TOTAL PROTEIN, SERUM 5.6 g/dL (6.4-8.2); VANCOMYCIN,RANDOM 17.7 mcg/mL (25.0-50.0)
[2024-07-07] MEDS: VANCOMYCIN 500 MG/WATER(PEG) 100 ML IV ONE (11:27)
[2024-07-07] MEDS: FentaNYL CIT 1000MCG/0.9% NACL 100 ML IV PRN (11:36)
[2024-07-07 13:46] LABS: GLUCOMETER DEV NAME(LOC) ICUN.5; GLUCOSE,POINT OF CARE 130 MG/DL (70-110)
[2024-07-07] MEDS ORDERED: DEXTROSE 5%-0.45% SODIUM CHL 1,000 ML IV PRN (14:00)
[2024-07-07 14:06] LABS: S PNEUMO SOURCE Urine; STREP PNEUMONIAE AG URINE Negative (Negative)
[2024-07-07] MEDS ORDERED: HEPARIN SODIUM,PORCINE 5,000 UNITS/ML VIAL IVP PRN ×2 (14:45)
[2024-07-07] MEDS: HEPARIN SODIUM 25000 UNITS/D5W 250 ML IV PRN (15:22)
[2024-07-07 15:44] LABS: BASOPHILS % (AUTO) 0.3 % (0.0-2.0); EOSINOPHILS % (AUTO) 1.3 % (1.0-6.0); HEMATOCRIT 27.4 % (36-46); HEMOGLOBIN 8.7 g/dL (12.0-16.0); LYMPHOCYTES # (AUTO) 0.3 K/uL (1.0-4.8); MEAN CORPUSCULAR HEMOGLOBIN 29.8 pg (26.0-34.0); MEAN CORPUSCULAR HGB CONC 31.7 G/dL (31.0-37.0); MEAN CORPUSCULAR VOLUME 94 fL (80-100); MONOCYTES # (AUTO) 0.9 K/uL (0.1-1.0); MONOCYTES % (AUTO) 6.2 % (2.0-9.0); PLATELET COUNT (AUTO) 117 K/uL (150-450); RED BLOOD CELL COUNT(AUTO) 2.91 MIL/uL (4.00-5.20); RED CELL DISTRIBUTION WIDTH 19.2 % (11.5-14.5); WHITE BLOOD COUNT (AUTO) 14.5 K/uL (4.5-11.0)
[2024-07-07 15:55] LABS: NEUTROPHILS % (AUTO) 90.2 % (40.0-70.0)
[2024-07-07 15:58] LABS: PROTHROMBIN TIME 10.9 SEC (9.4-11.6)
[2024-07-07 16:07] LABS: LEGIONELLA PNEUMO AG URINE Negative (Negative)
[2024-07-07 18:56] LABS: GLUCOMETER DEV NAME(LOC) ICUN.5; GLUCOSE,POINT OF CARE 129 MG/DL (70-110)
[2024-07-08] VITALS (12 sets, daily range): BP systolic 92–117; BP diastolic 51–73; PULSE 78–97; RESP 16; TEMP 96.7–98.9; O2SAT 86–97
[2024-07-08 01:51] LABS: GLUCOMETER DEV NAME(LOC) ICUN.5; GLUCOSE,POINT OF CARE 118 MG/DL (70-110)
[2024-07-08 06:12] LABS: BASOPHILS % (AUTO) 0.2 % (0.0-2.0); EOSINOPHILS % (AUTO) 0.5 % (1.0-6.0); HEMATOCRIT 28.6 % (36-46); HEMOGLOBIN 9.2 g/dL (12.0-16.0); LYMPHOCYTES # (AUTO) 0.3 K/uL (1.0-4.8); LYMPHOCYTES % (AUTO) 1.8 % (22.0-44.0); MEAN CORPUSCULAR HEMOGLOBIN 30.1 pg (26.0-34.0); MEAN CORPUSCULAR HGB CONC 32.1 G/dL (31.0-37.0); MEAN CORPUSCULAR VOLUME 94 fL (80-100); MONOCYTES % (AUTO) 5.6 % (2.0-9.0); NEUTROPHILS # (AUTO) 15.8 K/uL (1.8-7.7); PLATELET COUNT (AUTO) 116 K/uL (150-450); RED BLOOD CELL COUNT(AUTO) 3.04 MIL/uL (4.00-5.20); RED CELL DISTRIBUTION WIDTH 19.2 % (11.5-14.5); WHITE BLOOD COUNT (AUTO) 17.1 K/uL (4.5-11.0)
[2024-07-08 06:21] LABS: CALCIUM, TOTAL 8.6 mg/dL (8.8-10.5); CREATININE 3.31 mg/dL (0.60-1.30); POTASSIUM 4.4 mmol/L (3.5-5.1)
[2024-07-08 06:25] LABS: NEUTROPHILS % (AUTO) 91.9 % (40.0-70.0)
[2024-07-08 06:50] LABS: GLUCOMETER DEV NAME(LOC) ICUN.5; GLUCOSE,POINT OF CARE 115 MG/DL (70-110)
[2024-07-08] MEDS: PANTOPRAZOLE SODIUM 40 MG/VIAL IVP SCH (08:56)
[2024-07-08 12:56] LABS: GLUCOMETER DEV NAME(LOC) ICUN.5; GLUCOSE,POINT OF CARE 106 MG/DL (70-110)
[2024-07-08 19:48] LABS: HEMATOCRIT 26.2 % (36-46); HEMOGLOBIN 8.3 g/dL (12.0-16.0)
[2024-07-08] MEDS ORDERED: SODIUM CHLORIDE 0.9% 500 ML IV ONE (20:00)
[2024-07-08 21:15] LABS: GLUCOMETER DEV NAME(LOC) ICUN.5; GLUCOSE,POINT OF CARE 108 MG/DL (70-110)
[2024-07-09] VITALS (20 sets, daily range): BP systolic 60–92; BP diastolic 38–52; PULSE 83–112; RESP 16–27; TEMP 92.9–98.1; O2SAT 70–100
[2024-07-09 00:21] LABS: GLUCOMETER DEV NAME(LOC) ICU.S6; GLUCOSE,POINT OF CARE 77 MG/DL (70-110)
[2024-07-09] MEDS: DEXTROSE 50%-WATER 25 GM/50 ML SYRINGE IVP PRN (02:28)
[2024-07-09 03:06] LABS: ABG BASE EXCESS -12.5 mmol/L (-2.0-3.0); ABG CARBOXYHEMOGLOBIN 0.3 % (0.5-1.5); ABG METHEMOGLOBIN 0.3 % (0.0-1.5); ABG OXYGEN CONTENT 11.7 mL/dL (15.0-23.0); ABG OXYGEN SATURATION 97.6 % (94.0-98.0); ABG PCO2 45 mmHg (32.0-45.0); ABG TOTAL HEMOGLOBIN 8.4 G/dL (12.0-16.0); PO2, ARTERIAL BG 119.4 mmHg (83.0-108.0); SOURCE, BLOOD GAS ARTERIAL; TEMPERATURE, FAHRENHEIT, BG 97.4 FAHREN (96.0-98.6)
[2024-07-09 03:07] LABS: O2 DEVICE,BLOOD GAS VENTILATOR (ROOM AIR); PEEP,BG 5 cm H2O; SITE, BLOOD GAS ARTERIAL LINE; VT, ABG 330 ml
[2024-07-09 04:03] LABS: CALCIUM, TOTAL 7.9 mg/dL (8.8-10.5); CREATININE 3.68 mg/dL (0.60-1.30); POTASSIUM 4.9 mmol/L (3.5-5.1)
[2024-07-09] MEDS: EPINEPHrine 5 MG in DEXTROSE 5%-WATER 245 ML IV PRN (05:07)
[2024-07-09 07:00] LABS: GLUCOMETER DEV NAME(LOC) ICU.S6; GLUCOSE,POINT OF CARE 36 MG/DL (70-110)
[2024-07-09 07:00] LABS: GLUCOMETER DEV NAME(LOC) ICU.S6; GLUCOSE,POINT OF CARE 23 MG/DL (70-110)
[2024-07-09 07:01] LABS: GLUCOMETER DEV NAME(LOC) ICU.S6; GLUCOSE,POINT OF CARE 260 MG/DL (70-110)
[2024-07-09 07:01] LABS: GLUCOMETER DEV NAME(LOC) ICU.S6; GLUCOSE,POINT OF CARE 315 MG/DL (70-110)
[2024-07-09] MEDS: SODIUM BICARBONATE [ADULT] 8.4% 50 MEQ/50 ML SYRINGE IVP ONE (07:38)
[2024-07-09] MEDS: ALBUMIN HUMAN 25%-12.5GM/50ML 50 ML IV SCH (09:33)
[2024-07-09 09:47] LABS: BASOPHILS % (AUTO) 0.2 % (0.0-2.0); EOSINOPHILS % (AUTO) 0 % (1.0-6.0); HEMATOCRIT 23.8 % (36-46); HEMOGLOBIN 7.4 g/dL (12.0-16.0); LYMPHOCYTES # (AUTO) 0.2 K/uL (1.0-4.8); LYMPHOCYTES % (AUTO) 1.4 % (22.0-44.0); MEAN CORPUSCULAR HEMOGLOBIN 29.6 pg (26.0-34.0); MEAN CORPUSCULAR VOLUME 96 fL (80-100); MONOCYTES # (AUTO) 0.7 K/uL (0.1-1.0); MONOCYTES % (AUTO) 4.2 % (2.0-9.0); PLATELET COUNT (AUTO) 133 K/uL (150-450); RED BLOOD CELL COUNT(AUTO) 2.49 MIL/uL (4.00-5.20); RED CELL DISTRIBUTION WIDTH 19.3 % (11.5-14.5)
[2024-07-09 09:50] LABS: NEUTROPHILS % (AUTO) 94.2 % (40.0-70.0)
[2024-07-09] MEDS ORDERED: SODIUM CHLORIDE 0.9% 2,000 ML IV PRN (11:30)
[2024-07-09 11:56] LABS: GLUCOMETER DEV NAME(LOC) ICUN.5; GLUCOSE,POINT OF CARE 190 MG/DL (70-110)
[2024-07-09] MEDS ORDERED: POTASSIUM CHLORIDE 20 MEQ in NXSTAGE RFP-402 K0/CA3 5,000 ML IRRIG PRN (12:00)
[2024-07-09] MEDS ORDERED: SODIUM CHLORIDE 0.9% 250 ML IV ONE (13:14)
[2024-07-09 14:40] LABS: ABG BASE EXCESS -13.1 mmol/L (-2.0-3.0); ABG CARBOXYHEMOGLOBIN 0.5 % (0.5-1.5); ABG HCO3 14.4 mmol/L (21.0-28.0); ABG METHEMOGLOBIN 0.2 % (0.0-1.5); ABG OXYGEN CONTENT 10.2 mL/dL (15.0-23.0); ABG OXYGEN SATURATION 93.5 % (94.0-98.0); ABG OXYHEMOGLOBIN 92.8 % (94.0-98.0); ABG PCO2 55 mmHg (32.0-45.0); ABG PH 7.095 (7.350-7.450); ABG TOTAL HEMOGLOBIN 7.7 G/dL (12.0-16.0); O2 DEVICE,BLOOD GAS VENTILATOR (ROOM AIR); PO2, ARTERIAL BG 75.5 mmHg (83.0-108.0); SITE, BLOOD GAS ARTERIAL LINE; SOURCE, BLOOD GAS ARTERIAL; TEMPERATURE, FAHRENHEIT, BG 94.4 FAHREN (96.0-98.6)
[2024-07-09 14:41] LABS: PEEP,BG 5 cm H2O; SPONTANEOUS VT, BG 329 ml; VT, ABG 330 ml
[2024-07-09 18:32] LABS: HEMATOCRIT 24.7 % (36-46); HEMOGLOBIN 7.9 g/dL (12.0-16.0); MEAN CORPUSCULAR HGB CONC 31.8 G/dL (31.0-37.0); MEAN CORPUSCULAR VOLUME 91 fL (80-100); RED BLOOD CELL COUNT(AUTO) 2.71 MIL/uL (4.00-5.20); RED CELL DISTRIBUTION WIDTH 17.6 % (11.5-14.5)
[2024-07-09] MEDS ORDERED: POTASSIUM CHLORIDE 20 MEQ, SODIUM BICARBONATE 25 MEQ in NXSTAGE RFP-402 K0/CA3 5,000 ML IRRIG PRN (18:52)
[2024-07-09 19:04] LABS: PLATELET COUNT (AUTO) 51 K/uL (150-450)
[2024-07-09 19:14] LABS: BAND NEUTROPHILS % (MANUAL) 6 % (0-5); CORRECTED WHITE BLOOD COUNT 14.8 K/uL (4.5-11.0); LYMPHOCYTES % (MANUAL) 1 % (22-44); MONOCYTES % (MANUAL) 1 % (2-9); SEGMENTED NEUTROPHILS % 92 % (40-70); TOTAL CELLS COUNTED 100; WHITE BLOOD COUNT (AUTO) 14.8 K/uL (4.5-11.0)
[2024-07-09 19:16] LABS: PLATELET MORPHOLOGY COMMENT LARGE PLTS PRESENT
[2024-07-09 19:17] LABS: RBC MORPHOLOGY COMMENT ABNORMAL RBC MORPH
[2024-07-09 19:19] LABS: PATHOLOGY REVIEW, DIFF YES
[2024-07-09 20:26] LABS: GLUCOMETER DEV NAME(LOC) ICU.S6; GLUCOSE,POINT OF CARE 237 MG/DL (70-110)
[2024-07-09] MEDS: MEROPENEM 1 GM in SODIUM CHLORIDE 0.9% 100 ML IV SCH (21:14)
[2024-07-10] VITALS (16 sets, daily range): BP systolic 68–99; BP diastolic 36–50; PULSE 69–91; RESP 13–35; TEMP 90.2–93.7; O2SAT 80–100
[2024-07-10] MEDS: ALBUMIN HUMAN 25%-12.5GM/50ML 50 ML IV SCH (00:28)
[2024-07-10 01:31] LABS: GLUCOMETER DEV NAME(LOC) ICUN.5; GLUCOSE,POINT OF CARE 250 MG/DL (70-110)
[2024-07-10 06:16] LABS: GLUCOMETER DEV NAME(LOC) ICU.S6; GLUCOSE,POINT OF CARE 236 MG/DL (70-110)
[2024-07-10 06:26] LABS: BASOPHILS % (AUTO) 0.2 % (0.0-2.0); EOSINOPHILS % (AUTO) 0 % (1.0-6.0); HEMATOCRIT 25.9 % (36-46); HEMOGLOBIN 8.5 g/dL (12.0-16.0); LYMPHOCYTES # (AUTO) 0.2 K/uL (1.0-4.8); LYMPHOCYTES % (AUTO) 1.2 % (22.0-44.0); MEAN CORPUSCULAR HEMOGLOBIN 29.8 pg (26.0-34.0); MEAN CORPUSCULAR HGB CONC 32.8 G/dL (31.0-37.0); MEAN CORPUSCULAR VOLUME 91 fL (80-100); MONOCYTES # (AUTO) 0.5 K/uL (0.1-1.0); MONOCYTES % (AUTO) 2.9 % (2.0-9.0); PLATELET COUNT (AUTO) 45 K/uL (150-450); RED BLOOD CELL COUNT(AUTO) 2.84 MIL/uL (4.00-5.20); RED CELL DISTRIBUTION WIDTH 18.7 % (11.5-14.5); WHITE BLOOD COUNT (AUTO) 16.8 K/uL (4.5-11.0)
[2024-07-10 06:41] LABS: NEUTROPHILS % (AUTO) 95.7 % (40.0-70.0)
[2024-07-10 06:42] LABS: PLATELET MORPHOLOGY COMMENT LARGE PLTS PRESENT; RBC MORPHOLOGY COMMENT ABNORMAL RBC MORPH
[2024-07-10 07:14] LABS: ALBUMIN 2.2 g/dL (3.4-5.0); BILIRUBIN,TOTAL 2.1 mg/dL (0.1-1.0); CALCIUM, TOTAL 7.4 mg/dL (8.8-10.5); CREATININE 2.08 mg/dL (0.60-1.30); MAGNESIUM 1.4 mg/dL (1.80-2.40); PHOSPHORUS 4.1 mg/dL (2.5-4.9); POTASSIUM 3.6 mmol/L (3.5-5.1); TOTAL PROTEIN, SERUM 5.3 g/dL (6.4-8.2); VANCOMYCIN,RANDOM 11.6 mcg/mL (25.0-50.0)
[2024-07-10] MEDS ORDERED: HEPARIN SODIUM,PORCINE 5,000 UNITS/ML VIAL IVP PRN ×2 (08:45)
[2024-07-10] MEDS: MAGNESIUM SULFATE 3 GM in DEXTROSE 5%-WATER 100 ML IV ONE (09:22)
[2024-07-10] MEDS: VANCOMYCIN 750 MG/WATER(PEG) 150 ML IV ONE (09:22)
[2024-07-10] MEDS: HEPARIN SODIUM 25000 UNITS/D5W 250 ML IV PRN (09:26)
[2024-07-10 10:13] LABS: BASOPHILS % (AUTO) 1.2 % (0.0-2.0); EOSINOPHILS % (AUTO) 0 % (1.0-6.0); HEMATOCRIT 25.7 % (36-46); HEMOGLOBIN 8.3 g/dL (12.0-16.0); LYMPHOCYTES # (AUTO) 0.2 K/uL (1.0-4.8); LYMPHOCYTES % (AUTO) 1.3 % (22.0-44.0); MEAN CORPUSCULAR HEMOGLOBIN 29.4 pg (26.0-34.0); MEAN CORPUSCULAR HGB CONC 32.3 G/dL (31.0-37.0); MEAN CORPUSCULAR VOLUME 91 fL (80-100); MONOCYTES # (AUTO) 0.4 K/uL (0.1-1.0); MONOCYTES % (AUTO) 2.3 % (2.0-9.0); NEUTROPHILS # (AUTO) 16.1 K/uL (1.8-7.7); NEUTROPHILS % (AUTO) 95.2 % (40.0-70.0); PLATELET COUNT (AUTO) 40 K/uL (150-450); RED BLOOD CELL COUNT(AUTO) 2.83 MIL/uL (4.00-5.20); RED CELL DISTRIBUTION WIDTH 18.7 % (11.5-14.5); WHITE BLOOD COUNT (AUTO) 16.9 K/uL (4.5-11.0)
[2024-07-10 10:25] LABS: PLATELET MORPHOLOGY COMMENT LARGE PLTS PRESENT; RBC MORPHOLOGY COMMENT ABNORMAL RBC MORPH
[2024-07-10 10:26] LABS: INR 1.5 (0.9-1.1); PROTHROMBIN TIME 15.7 SEC (9.4-11.6)
[2024-07-10 10:33] LABS: ABG BASE EXCESS -9.3 mmol/L (-2.0-3.0); ABG CARBOXYHEMOGLOBIN 0.5 % (0.5-1.5); ABG HCO3 16.9 mmol/L (21.0-28.0); ABG METHEMOGLOBIN 0.2 % (0.0-1.5); ABG OXYGEN CONTENT 10.6 mL/dL (15.0-23.0); ABG OXYHEMOGLOBIN 81.3 % (94.0-98.0); ABG PCO2 45 mmHg (32.0-45.0); ABG TOTAL HEMOGLOBIN 9.2 G/dL (12.0-16.0); SOURCE, BLOOD GAS ARTERIAL; TEMPERATURE, FAHRENHEIT, BG 90.7 FAHREN (96.0-98.6)
[2024-07-10 11:17] LABS: ABG PH 7.224 (7.350-7.450)
[2024-07-10 11:18] LABS: ABG A-A DIFF O2 346.2 mmHg (10-20.0); ABG OXYGEN SATURATION 81.9 % (94.0-98.0); O2 DEVICE,BLOOD GAS VENTILATOR (ROOM AIR); PEEP,BG 5 cm H2O; PO2, ARTERIAL BG 38.2 mmHg (83.0-108.0); SITE, BLOOD GAS ARTERIAL LINE; VT, ABG 330 ml
[2024-07-10] MEDS ORDERED: HEPARIN SODIUM,PORCINE 1,000 UNITS/ML VIAL ONE (12:00)
[2024-07-10 13:03] LABS: ABG BASE EXCESS -7.6 mmol/L (-2.0-3.0); ABG CARBOXYHEMOGLOBIN 0.4 % (0.5-1.5); ABG HCO3 18.4 mmol/L (21.0-28.0); ABG METHEMOGLOBIN 0.3 % (0.0-1.5); ABG OXYGEN CONTENT 12.6 mL/dL (15.0-23.0); ABG OXYGEN SATURATION 95.7 % (94.0-98.0); ABG PCO2 42 mmHg (32.0-45.0); ABG PH 7.278 (7.350-7.450); ABG TOTAL HEMOGLOBIN 9.3 G/dL (12.0-16.0); PO2, ARTERIAL BG 67.1 mmHg (83.0-108.0); SOURCE, BLOOD GAS ARTERIAL; TEMPERATURE, FAHRENHEIT, BG 91.6 FAHREN (96.0-98.6)
[2024-07-10 13:06] LABS: ABG A-A DIFF O2 613.3 mmHg (10-20.0); INSIPIRATORY PRESSURE, BG 34 cm H2O; INSPIRATORY TIME, BG 0.9 SEC; O2 DEVICE,BLOOD GAS VENTILATOR (ROOM AIR); PEEP,BG 5 cm H2O; SITE, BLOOD GAS ARTERIAL LINE; SPONTANEOUS VT, BG 340 ml; VENT MODE, BG Press. Control Vent (ROOM AIR)
[2024-07-11] VITALS (14 sets, daily range): BP systolic 48–71; BP diastolic 28–43; PULSE 57–75; RESP 8–32; TEMP 93.3–96.5; O2SAT 53–93
[2024-07-11 01:01] LABS: GLUCOMETER DEV NAME(LOC) ICU.S6; GLUCOSE,POINT OF CARE 202 MG/DL (70-110)
[2024-07-11 01:01] LABS: GLUCOMETER DEV NAME(LOC) ICU.S6; GLUCOSE,POINT OF CARE 197 MG/DL (70-110)
[2024-07-11] MEDS ORDERED: SODIUM CHLORIDE 0.9% 250 ML IV ONE ×2 (02:50→08:36)
[2024-07-11 05:36] LABS: GLUCOMETER DEV NAME(LOC) ICU.S6; GLUCOSE,POINT OF CARE 166 MG/DL (70-110)
[2024-07-11 06:24] LABS: BASOPHILS % (AUTO) 0.2 % (0.0-2.0); EOSINOPHILS % (AUTO) 0.2 % (1.0-6.0); HEMATOCRIT 21.3 % (36-46); LYMPHOCYTES # (AUTO) 0.2 K/uL (1.0-4.8); LYMPHOCYTES % (AUTO) 1.4 % (22.0-44.0); MEAN CORPUSCULAR HGB CONC 31.1 G/dL (31.0-37.0); MEAN CORPUSCULAR VOLUME 93 fL (80-100); MONOCYTES # (AUTO) 0.4 K/uL (0.1-1.0); MONOCYTES % (AUTO) 2.4 % (2.0-9.0); NEUTROPHILS # (AUTO) 16.4 K/uL (1.8-7.7); PLATELET COUNT (AUTO) 29 K/uL (150-450); RED BLOOD CELL COUNT(AUTO) 2.28 MIL/uL (4.00-5.20); RED CELL DISTRIBUTION WIDTH 19.3 % (11.5-14.5); WHITE BLOOD COUNT (AUTO) 17.2 K/uL (4.5-11.0)
[2024-07-11 06:30] LABS: ALBUMIN 2.4 g/dL (3.4-5.0); BILIRUBIN,TOTAL 1.6 mg/dL (0.1-1.0); CALCIUM, TOTAL 6.9 mg/dL (8.8-10.5); CREATININE 1.75 mg/dL (0.60-1.30); PHOSPHORUS 4.5 mg/dL (2.5-4.9); POTASSIUM 4.1 mmol/L (3.5-5.1); TOTAL PROTEIN, SERUM 4.7 g/dL (6.4-8.2); VANCOMYCIN,RANDOM 20.1 mcg/mL (25.0-50.0)
[2024-07-11 06:35] LABS: HEMOGLOBIN 6.6 g/dL (12.0-16.0); NEUTROPHILS % (AUTO) 95.8 % (40.0-70.0)
[2024-07-11] MEDS: CALCIUM GLUCONATE 100 MG/ML 10 ML IVP ONE (08:56)
[2024-07-11] MEDS ORDERED: SODIUM CHLORIDE 0.9% 500 ML IV ONE (09:41)
[2024-07-11] MEDS: VANCOMYCIN 500 MG/WATER(PEG) 100 ML IV ONE (10:35)
== END 2024-07-11 17:30 | DRG 853 ==
LOC: EMS 19:24 → EDH 06-15 00:45 → ICU 06-15 01:24
PROVIDERS: ADMIT Hospitalist; ATTEND Hospitalist
PROC: 5A09357 Assistance with Respiratory Ventilation, Less than 24 Consecutive Hours, Continuous Positive Airway Pressure (ICD-10-PCS; 2024-06-15)
PROC: 5A09357 Assistance with Respiratory Ventilation, Less than 24 Consecutive Hours, Continuous Positive Airway Pressure (ICD-10-PCS; 2024-06-16)
PROC: 05HB33Z Insertion of Infusion Device into Right Basilic Vein, Percutaneous Approach (ICD-10-PCS; 2024-06-16)
PROC: 5A0945A Assistance with Respiratory Ventilation, 24-96 Consecutive Hours, High Flow/Velocity Cannula (ICD-10-PCS; 2024-06-16)
PROC: 5A09357 Assistance with Respiratory Ventilation, Less than 24 Consecutive Hours, Continuous Positive Airway Pressure (ICD-10-PCS; 2024-06-19)
PROC: 5A0935A Assistance with Respiratory Ventilation, Less than 24 Consecutive Hours, High Flow/Velocity Cannula (ICD-10-PCS; 2024-06-19)
PROC: 30233K1 Transfusion of Nonautologous Frozen Plasma into Peripheral Vein, Percutaneous Approach (ICD-10-PCS; principal; 2024-06-20)
PROC: 30233N1 Transfusion of Nonautologous Red Blood Cells into Peripheral Vein, Percutaneous Approach (ICD-10-PCS; 2024-06-20)
PROC: 0W9940Z Drainage of Right Pleural Cavity with Drainage Device, Percutaneous Endoscopic Approach (ICD-10-PCS; 2024-06-20)
PROC: 5A09357 Assistance with Respiratory Ventilation, Less than 24 Consecutive Hours, Continuous Positive Airway Pressure (ICD-10-PCS; 2024-06-20)
PROC: 05HC33Z Insertion of Infusion Device into Left Basilic Vein, Percutaneous Approach (ICD-10-PCS; 2024-06-20)
PROC: 5A0935A Assistance with Respiratory Ventilation, Less than 24 Consecutive Hours, High Flow/Velocity Cannula (ICD-10-PCS; 2024-06-20)
PROC: 5A09357 Assistance with Respiratory Ventilation, Less than 24 Consecutive Hours, Continuous Positive Airway Pressure (ICD-10-PCS; 2024-06-21)
PROC: 5A0935A Assistance with Respiratory Ventilation, Less than 24 Consecutive Hours, High Flow/Velocity Cannula (ICD-10-PCS; 2024-06-21)
PROC: 5A09357 Assistance with Respiratory Ventilation, Less than 24 Consecutive Hours, Continuous Positive Airway Pressure (ICD-10-PCS; 2024-06-22)
PROC: 5A09557 Assistance with Respiratory Ventilation, Greater than 96 Consecutive Hours, Continuous Positive Airway Pressure (ICD-10-PCS; 2024-06-22)
PROC: 5A09357 Assistance with Respiratory Ventilation, Less than 24 Consecutive Hours, Continuous Positive Airway Pressure (ICD-10-PCS; 2024-06-28)
PROC: 5A09357 Assistance with Respiratory Ventilation, Less than 24 Consecutive Hours, Continuous Positive Airway Pressure (ICD-10-PCS; 2024-06-29)
PROC: 5A1955Z Respiratory Ventilation, Greater than 96 Consecutive Hours (ICD-10-PCS; 2024-06-30)
PROC: 0BH17EZ Insertion of Endotracheal Airway into Trachea, Via Natural or Artificial Opening (ICD-10-PCS; 2024-06-30)
PROC: 5A12012 Performance of Cardiac Output, Single, Manual (ICD-10-PCS; 2024-06-30)
PROC: B2151ZZ Fluoroscopy of Left Heart using Low Osmolar Contrast (ICD-10-PCS; 2024-07-03)
PROC: 0DJ08ZZ Inspection of Upper Intestinal Tract, Via Natural or Artificial Opening Endoscopic (ICD-10-PCS; 2024-07-07)
DX: A41.9 Sepsis, unspecified organism (principal); E43 Unspecified severe protein-calorie malnutrition; J96.21 Acute and chronic respiratory failure with hypoxia; I50.33 Acute on chronic diastolic (congestive) heart failure; J96.22 Acute and chronic respiratory failure with hypercapnia; N17.0 Acute kidney failure with tubular necrosis; K72.00 Acute and subacute hepatic failure without coma; J15.69 Pneumonia due to other Gram-negative bacteria; I69.351 Hemiplegia and hemiparesis following cerebral infarction affecting right dominant side; J44.0 Chronic obstructive pulmonary disease with (acute) lower respiratory infection; E87.4 Mixed disorder of acid-base balance; J93.9 Pneumothorax, unspecified; I13.0 Hypertensive heart and chronic kidney disease with heart failure and stage 1 through stage 4 chronic kidney disease, or unspecified chronic kidney disease; D62 Acute posthemorrhagic anemia; I48.19 Other persistent atrial fibrillation; E87.3 Alkalosis; Z66 Do not resuscitate; Z20.822 Contact with and (suspected) exposure to COVID-19; E78.5 Hyperlipidemia, unspecified; F32.9 Major depressive disorder, single episode, unspecified; I35.0 Nonrheumatic aortic (valve) stenosis; E87.6 Hypokalemia; I07.1 Rheumatic tricuspid insufficiency; N18.9 Chronic kidney disease, unspecified; I46.9 Cardiac arrest, cause unspecified; R31.9 Hematuria, unspecified; D63.1 Anemia in chronic kidney disease; I25.10 Atherosclerotic heart disease of native coronary artery without angina pectoris; K80.20 Calculus of gallbladder without cholecystitis without obstruction; E83.42 Hypomagnesemia; I25.5 Ischemic cardiomyopathy; Z95.2 Presence of prosthetic heart valve; Z79.01 Long term (current) use of anticoagulants; Z95.5 Presence of coronary angioplasty implant and graft; Z79.899 Other long term (current) drug therapy; Z74.01 Bed confinement status
CPT/HCPCS: 32555; 36245; 36569; 36600; 71045; 71250; 72192; 74150; 75989; 76000; 76604; 76700; 76770; 76937; 76942; 80048; 80053; 80076; 80202; 81001; 81003; 82271; 82465; 82550; 82570; 82805; 82945; 82962; 83615; 83735; 83880; 83986; 84100; 84132; 84157; 84300; 84311; 84484; 84540; 84550; 85014; 85018; 85025; 85379; 85610; 85730; 86738; 86850; 86900; 86901; 86923; 86927; 87015; 87040; 87070; 87075; 87081; 87101; 87205; 87206; 87449; 87481; 87899; 88108; 88305; 89051; 90947; 92950; 93005; 93306; 93970; 94002; 94003; 94640; 94644; 94660; 99285; C9113; G0238; J0171; J0456; J0610; J0696; J0885; J1120; J1265; J1644; J1940; J2185; J2270; J2370; J2543; J2704; J2997; J3010; J3430; J3475; J3480; J3490; J7030; J7040; J7050; J7060; P9016; P9017; P9047; 36415-L1; 36415-TC; J7613